=== PATIENT | female | born 1955 | race Hispanic/Latino ===

== ENCOUNTER 2020-06-30 11:44 | Emergency (ER) | payer BC, OTHER ==
[~2020-06-30 11:44] MED LIST: ADV250 IH; ALBU2.5V2 IH; ALBUTEROL INHALER; HYDR-4068 PO; SULF1TAB42 PO; Simvastatin PO
[2020-06-30] MEDS ORDERED: FENTANYL CITRATE PF 50 MCG/1 ML 2ML VIAL ONE (12:26)
== END 2020-06-30 13:48 | disposition home or self-care (01) ==
LOC: EDH 11:44
DX: S20.219A Contusion of unspecified front wall of thorax, initial encounter (principal); E11.9 Type 2 diabetes mellitus without complications; J45.909 Unspecified asthma, uncomplicated; W18.39XA Other fall on same level, initial encounter; Y93.89 Activity, other specified; Y92.098 Other place in other non-institutional residence as the place of occurrence of the external cause; Y99.8 Other external cause status
CPT/HCPCS: 71250; 96374; 99284; J3010

== ENCOUNTER 2024-10-25 00:14 | Inpatient (IN) | payer MEDICARE ==
[~2024-10-25] VITALS: Ht 154.9 cm; Wt 114.8 kg
[2024-10-25] VITALS (28 sets, daily range): BP systolic 101–150; BP diastolic 46–70; PULSE 72–114; RESP 16–20; TEMP 97.4–98.1; O2SAT 94–96
--- NOTE | 2024-10-25 00:22 | ERN ---
General Chief Complaint: Abdominal Pain Stated Complaint: C/O EPIGASTRIC PAIN WITH NAUSEA ONSET TONIGHT Time Seen by MD: 00:17 Source: patient History of Present Illness Initial Comments Patient is a 68-year-old female with a past medical history of hypertension and diabetes hypercholesterolemia only. She comes in with sharp stabbing pain in her epigastrium that is constant and 10/10. The pain does not radiate but stays subxiphoid. When I asked her to point with one finger where the pain is she points to her subxiphoid region of her abdomen. Nothing she does can make it better or worse. This happened approximately two weeks ago and she toughed it out but this time it is worse and she comes to the emergency room. She feels nauseated but no emesis. No shortness of breath no pain in her chest. Normal bowel movements normal urination. Allergies: Coded Allergies: No Allergy Information Available (Verified Allergy, Unknown, 08/18/14) No Known Drug Allergies (Unverified Allergy, Unknown, 08/18/14) Home Meds Active Scripts Sulfamethoxazole/Trimethoprim (Bactrim Ds Tablet) 1 Each Tablet, 2 TAB PO BID, #40 TAB Prov:RAJI DAVILA MD 08/27/14 Hydrocodone/Acetaminophen (Hydrocodon-Acetaminophn 10-325) 1 Each Tablet, 1 EACH PO QID, #60 TAB 0 Refills Prov:MANI RODNEY MD 08/24/14 [Simvastatin] 40 MG TABLET No Conflict Check, 40 MG PO HS, #30 TAB 3 Refills Prov:MANI RODNEY MD 08/23/14 Albuterol Sulfate (Albuterol Sulfate) 2.5 Mg/3 Ml Inh, 2.5 MG IH [id number] PRN for SHORTNESS OF BREATH, #1 INH 3 Refills Prov:MANI RODNEY MD 08/23/14 Reported Medications [Albuterol Inhaler] No Conflict Check, AD 08/18/14 Fluticasone/Salmeterol (ADVAIR 250-50 DISKUS) 14 Inh/Disk Inh, 0 IH DAILY, INHALER 08/18/14 Past Medical History Past Medical History: Anxiety, Diabetes-Type II, High Cholesterol Past Surgical History: None Constitutional: (-) chills, (-) diaphoresis, (-) fever, (-) malaise, (-) weakness, (-) other documentation EENTM: (-) eye pain, (-) blurred vision, (-) tearing, (-) double vision, (-) ear pain, (-) ear discharge, (-) nose pain, (-) nose congestion, (-) throat pain, (-) Throat swelling, (-) mouth pain, (-) tooth pain, (-) mouth swelling, (-) other documentation Respiratory: (-) cough, (-) orthopnea, (-) short of breath, (-) stridor, (-) wheezing, (-) other documentation Cardiovascular: (-) chest pain, (-) edema, (-) palpitations, (-) syncope, (-) dyspnea on exertion, (-) other documentation Gastrointestinal/Abdominal: (+) nausea Musculoskeletal: (-) Neck pain, (-) back pain, (-) Flank Pain, (-) joint pain, (-) joint swelling, (-) muscle pain, (-) muscle stiffness, (-) gout, (-) other documentation Neuro: (-) altered mental status, (-) headache, (-) syncope, (-) paralysis, (-) numbness, (-) seizure, (-) pre-existing deficit, (-) tremors, (-) weakness, (-) dizziness, (-) slurred speech, (-) vertigo, (-) other documentation Physical Exam General Appearance: (+) moderate distress Orientation: (+) oriented x 3 Head/Face Trauma: No Eye: bilateral eye normal inspection, bilateral eye PERRL, bilateral eye EOMI Ear, Nose, Throat: (+) hearing grossly normal, (+) moist mucous membraine Neck: (+) normal inspection, (+) full range of motion, (+) no JVD Respiratory: (+) chest non-tender, (+) lungs clear, (+) well ventilated Heart: (+) regular, (+) no gallop Vascular: (+) no edema, (+) normal peripheral pulse Gastrointestinal: (+) soft, (+) tender, (+) bowel sound absent Neurologic/Psychiatric: (+) normal speech, (+) no motor defecits, (+) no sensory deficits Results Laboratory and Microbiology Lab and Micro Result Laboratory Tests Test 10/25/24:23 10/25/24 00:53 Urine Color YELLOW (YELLOW) Urine Appearance CLOUDY (CLEAR) H Urine pH 7.0 (5.0-8.0) Urine Specific [place] 1.034 (1.001-1.031) Urine Protein 50 mg/dL (NEGATIVE) H Urine Glucose (UA) NEGATIVE mg/dL (NEGATIVE) Urine Ketones 5 mg/dL (NEGATIVE) H Urine Occult Blood NEGATIVE (NEGATIVE) Urine Nitrate NEGATIVE (NEGATIVE) Urine Bilirubin NEGATIVE mg/dL (NEGATIVE) Urine Urobilinogen 12 mg/dL (0.2-1.0) H Urine Leukocyte Esterase 250 Roberto/uL (NEGATIVE) H Urine RBC 2-5 /HPF (0-1) H Urine WBC 11-25 /HPF (0-1) H Urine Squamous Epithelial Cells MANY /HPF (0-2) Urine Bacteria RARE /HPF (None Seen) White Blood Count 12.2 K/uL (4.8-10.8) H Red Blood Count 5.03 MIL/uL (4.00-5.50) Hemoglobin 14.9 g/dL (12.0-16.0) Hematocrit 45.8 % (36-48) Mean Corpuscular Volume 91.1 fL (79-99) Mean Corpuscular Hemoglobin 29.6 pg (27.0-33.0) Mean Corpuscular Hemoglobin Concent 32.5 g/dL (32.0-36.0) Red Cell Distribution Width 12.9 % (11.0-15.5) Platelet Count 298 K/uL (130-400) Mean Platelet Volume 10.2 fL (7.5-10.5) Immature Granulocyte % (Auto) 0.4 % (0-1) Neutrophils (%) (Auto) 64.7 % (40.0-77.0) Lymphocytes (%) (Auto) 23.2 % (21.0-51.0) Monocytes (%) (Auto) 10.3 % (3.0-13.0) Eosinophils (%) (Auto) 0.9 % (0.0-8.0) Basophils (%) (Auto) 0.5 % (0.0-5.0) Neutrophils # (Auto) 7.9 K/uL (1.8-7.7) H Lymphocytes # (Auto) 2.8 K/uL (1.0-4.8) Monocytes # (Auto) 1.3 K/uL (0.1-1.0) H Eosinophils # (Auto) 0.11 K/uL (0.00-0.70) Basophils # (Auto) 0.06 K/uL (0.00-0.20) Absolute Immature Granulocyte (auto 0.05 K/uL (0-1) Nucleated Red Blood Cells 0.0 % (0.0-0.19) Sodium Level 139 mmol/L (136-145) Potassium Level 3.9 mmol/L (3.5-5.1) Chloride Level 100 mmol/L (101-111) L Carbon Dioxide Level 31 mmol/L (21-32) Blood Urea Nitrogen 18 mg/dL (7-18) Creatinine 1.1 mg/dL (0.5-1.0) H Glomerular Filtration Rate Calc 55 mL/min (>90) Random Glucose 224 mg/dL (70-105) H Total Calcium 9.4 mg/dL (8.5-10.1) Total Bilirubin 0.8 mg/dL (0.2-1.0) Direct Bilirubin 0.6 mg/dL (0.0-0.3) H Aspartate Amino Transf (AST/SGOT) 372 U/L (10-37) H Alanine Aminotransferase (ALT/SGPT) 306 U/L (12-78) H Alkaline Phosphatase 217 U/L (50-136) H Troponin I High Sensitivity < 4 ng/L (4-50) L B-Type Natriuretic Peptide < 5 pg/mL (0-100) Total Protein 8.7 g/dL (6.0-8.3) H Albumin 3.6 g/dL (3.5-5.0) Lipase 42 U/L (16-77) MDM I have no easy explanation now for patient's pain. Differential diagnosis could include, acute NV, pancreatitis, perforated duodenal ulcer, GERD, UTI, gallbladder disease. I will start with the usual normal labs and fluid. I will give her some pain medications and some Flexeril to help her relax. PT's cardiac enzymes are negative. CBC shows a a mild leukocytosis. CMP shows transaminitis and hyperglycemia but otherwise normal. CT scan of the abdomen shows a large stone in the patient's gallbladder and a distended gallbladder no pericholecystic fluid. Ultrasound is positive Nunez's sign with a distended gallbladder and a large gallstone as well. Had to give the patient multiple doses of fentanyl and a loading dose of ketorolac and her pain still not well controlled. I will admit her to the hospital for unremitting pain and biliary colic versus acute cholecystitis. Able to contact the general surgeon Dr. Mata and he has agreed to admit the patient to the hospital for possible cholecystitis. I have called the hospitalist to admit the patient and they have agreed. ED Course Orders Procedure Category Date Status Time Basic Metabolic Panel LAB 10/25/24 Complete 00:22 Cbc With Differential LAB 10/25/24 Complete 00:22 Urinalysis Profile LAB 10/25/24 Complete 00:22 Lactated Ringers PHA 10/25/24 Complete 1000ml (Lactated 00:22 12 Lead Ekg Tracing- EKG 10/25/24 Logged Technical 00:29 Culture Urine ARISTEO 10/25/24 In Process 00:42 Cyclobenzaprine Hcl PHA 10/25/24 Complete (Cyclobenzaprine Hcl 01:00 Ketorolac PHA 10/25/24 Complete Tromethamine 30mg/Ml 01:00 Lidocaine Hcl 2% PHA 10/25/24 Complete Viscous (Lidocaine Hcl 01:00 Mag/Alum/Simeth 30ml PHA 10/25/24 Complete (Maalox Plus 30ml) 01:00 Pantoprazole 40mg Inj PHA 10/25/24 Complete (Protonix 40mg Inj 01:00 Troponin I High LAB 10/25/24 Complete Sensitivity 00:49 B-Type Natriuretic LAB 10/25/24 Complete Peptide 00:49 Ct Abdomen/Pelvis CT 10/25/24 Taken W/Wo Contras 00:56 Lipase LAB 10/25/24 Complete 00:53 Ondansetron 4mg Inj PHA 10/25/24 Complete (Zofran 4mg Inj) 01:30 Hepatic Function Panel LAB 10/25/24 Complete 01:27 Iohexol (Omnipaque) PHA 10/25/24 Complete 01:51 Cefazolin Sodium 1 Gm PHA 10/25/24 Complete Vial (Ancef 1 Gm V 01:57 Fentanyl Citrate Pf PHA 10/25/24 Complete 0.05 Mg/Ml (Fentanyl 02:30 Insulin Regular, PHA 10/25/24 Complete Human 3ml (Humulin R 02:30 Us Abdominal Ruq\Ltd 10/25/24 Taken 02:24 Fentanyl Citrate Pf PHA 10/25/24 Complete 0.05 Mg/Ml (Fentanyl 03:00 Nm Hida Wo Ef/Cck NM 10/25/24 Logged 03:19 Ketorolac PHA 10/25/24 Complete Tromethamine 30mg/Ml 03:30 Current Medications Medications (Trade) Dose Ordered Sig/Joseph Route PRN Reason Start Time Stop Time Status Last Admin Dose Admin Al Hydroxide/Mg Hydroxide (MAALox PLUS 30ML) 30 ml ONCE ONCE PO 10/25/24 01:00 10/25/24 01:01 DC 10/25/24 01:00 Cefazolin Sodium (ANCEF 1 gm vial) 1 gm ONCE STAT IVP 10/25/24 01:57 10/25/24 02:03 DC 10/25/24 02:10 Cyclobenzaprine HCl (Cyclobenzaprine HCl) 10 mg ONCE ONCE PO 10/25/24 01:00 10/25/24 01:01 DC 10/25/24 01:00 Fentanyl Citrate (FENTanyl CITRate PF 50 MCG/ 1 ML 2ML VIAL) 50 mcg ONCE ONCE IVP 10/25/24 02:30 10/25/24 02:31 DC 10/25/24 02:19 Fentanyl Citrate (FENTanyl CITRate PF 50 MCG/ 1 ML 2ML VIAL) 50 mcg ONCE ONCE IVP 10/25/24 03:00 10/25/24 03:01 DC 10/25/24 02:52 Insulin Human Regular (humuLIN R 100 UNIT/ML 3ML) 10 unit ONCE ONCE SQ 10/25/24 02:30 10/25/24 02:31 DC 10/25/24 02:27 Iohexol (Omnipaque) 35,000 mg STK-MED ONCE IV 10/25/24 01:51 10/25/24 01:52 DC Ketorolac Tromethamine (toRADol) 30 mg ONCE ONCE IVP 10/25/24 01:00 10/25/24 01:01 DC 10/25/24 01:00 Ketorolac Tromethamine (toRADol) 30 mg ONCE ONCE IVP 10/25/24 03:30 10/25/24 03:31 DC 10/25/24 03:33 Lactated Ringer's (Lactated Ringers 1000ml) 1,000 ml BOLUS STAT IV 10/25/24 00:22 10/25/24 00:29 DC 10/25/24 00:47 Lidocaine HCl (Lidocaine HCl 2% Viscous) 10 ml ONCE ONCE PO 10/25/24 01:00 10/25/24 01:01 DC 10/25/24 01:00 Ondansetron HCl (zoFRAN 4MG INJ) 4 mg ONCE ONCE IVP 10/25/24 01:30 10/25/24 01:31 DC 10/25/24 01:17 Pantoprazole Sodium (PROTonix 40MG INJ) 40 mg ONCE ONCE IVP 10/25/24 01:00 10/25/24 01:01 DC 10/25/24 01:00 Vital Signs Date Time Temp Pulse Resp B/P (MAP) Pulse Ox O2 Delivery O2 Flow Rate FiO2 10/25/24 05:14 98.4 81 18 103/52 96 Room Air* 0 21 10/25/24 00:17 98.2 95 20 159/91 95 Room Air DX & DISP Disposition: Inpatient Departure Impression: Primary Impression: Biliary colic Additional Impression: Intractable abdominal pain Condition: Stable Referrals: MANI RODNEY MD (PCP) TAZ STEVENS MD October 25, 2024 00:22
[2024-10-25 00:40] LABS: APPEARANCE,URINE CLOUDY (CLEAR); BILIRUBIN,URINE NEGATIVE (NEGATIVE); COLOR,URINE YELLOW (YELLOW); GLUCOSE, URINE (UA) NEGATIVE (NEGATIVE); KETONES,URINE 5 mg/dL (NEGATIVE); LEUKOCYTE ESTERASE ,URINE 250 Leu/uL (NEGATIVE); NITRATE,URINE NEGATIVE (NEGATIVE); OCCULT BLOOD,URINE NEGATIVE (NEGATIVE); PROTEIN,URINE 50 mg/dL (NEGATIVE); UROBILINOGEN,URINE 12 mg/dL (0.2-1.0)
[2024-10-25 00:42] LABS: ADD UA MICROSCOPIC YES
[2024-10-25 00:44] LABS: BACTERIA,URINE RARE /HPF (None Seen); MUCUS,URINE FEW LPF (None Seen); SQUAMOUS EPITHELIAL CELL,UR MANY /HPF (0-2)
[2024-10-25] MEDS: LACTATED RINGERS 1000ML IV STA (00:47)
[2024-10-25] MEDS: ketOROlac 30MG VIAL (30MG/ML) IVP ONE ×2 (01:00→03:33)
[2024-10-25] MEDS: MAG/ALUM/SIMETH 30 ML UDCUP PO ONE (01:00)
[2024-10-25] MEDS: LIDOCAINE HCL 2% VISCOUS 15 ML UDCUP PO ONE (01:00)
[2024-10-25] MEDS: CYCLOBENZAPRINE HCL 10 MG TABLET PO ONE (01:00)
[2024-10-25] MEDS: PANTOPrazole 40 MG/VIAL IVP ONE (01:00)
[2024-10-25 01:02] LABS: BASOPHILS # (AUTO) 0.06 K/uL (0.00-0.20); BASOPHILS % (AUTO) 0.5 % (0.0-5.0); EOSINOPHILS # (AUTO) 0.11 K/uL (0.00-0.70); EOSINOPHILS % (AUTO) 0.9 % (0.0-8.0); HEMATOCRIT 45.8 % (36-48); IMMATURE GRANULOCYTE ABSOLUTE 0.05 K/uL (0-1); LYMPHOCYTES # (AUTO) 2.8 K/uL (1.0-4.8); LYMPHOCYTES % (AUTO) 23.2 % (21.0-51.0); MEAN CORPUSCULAR HEMOGLOBIN 29.6 pg (27.0-33.0); MEAN CORPUSCULAR HGB CONC 32.5 g/dL (32.0-36.0); MEAN CORPUSCULAR VOLUME 91.1 fL (79-99); MONOCYTES # (AUTO) 1.3 K/uL (0.1-1.0); MONOCYTES % (AUTO) 10.3 % (3.0-13.0); NEUTROPHILS # (AUTO) 7.9 K/uL (1.8-7.7); NEUTROPHILS % (AUTO) 64.7 % (40.0-77.0); PLATELET COUNT (AUTO) 298 K/uL (130-400); RED BLOOD CELL COUNT(AUTO) 5.03 MIL/uL (4.00-5.50); RED CELL DISTRIBUTION WIDTH 12.9 % (11.0-15.5); WHITE BLOOD COUNT (AUTO) 12.2 K/uL (4.8-10.8)
[2024-10-25 01:10] LABS: CREATININE 1.1 mg/dL (0.5-1.0); POTASSIUM 3.9 mmol/L (3.5-5.1)
[2024-10-25] MEDS: ondanSETRON 4MG INJ IVP ONE (01:17)
[2024-10-25] MEDS ORDERED: IOHEXOL 350 MG/ML 100ML INFUS..BTL IV ONE (01:51)
[2024-10-25 02:03] LABS: ALBUMIN 3.6 g/dL (3.5-5.0); BILIRUBIN,DIRECT 0.6 mg/dL (0.0-0.3); BILIRUBIN,TOTAL 0.8 mg/dL (0.2-1.0); TOTAL PROTEIN, SERUM 8.7 g/dL (6.0-8.3)
[2024-10-25] MEDS: ceFAZolin SODIUM 1 GM VIAL IVP STA (02:10)
[2024-10-25] MEDS: FENTanyl CITRate PF 50 MCG/1 ML 2ML VIAL IVP ONE ×2 (02:19→02:52)
[2024-10-25] MEDS: INSULIN humuLIN R 100 UNIT/ML 3ML SQ ONE (02:27)
[2024-10-25] MEDS: 0.9%NACL 1000ML 1,000 ML IV SCH (06:53)
[2024-10-25] MEDS: hydroMORPHone 1 MG INJ IVP ONE (06:53)
[2024-10-25] MEDS: cefTRIAXone 1G VIAL IVPB SCH (07:46)
--- NOTE | 2024-10-25 08:32 | HMCIMG ---
Exam Type: CT ABDOMEN/PELVIS W/WO CONTRAS Clinical Information: periumbilical pain Comparison: None Contrast: 100 cc's Isovue 370 IV, no complications or adverse reactions CT Dose Index (CTDI): 31.60 mGy Dose Length Product (DLP): 1740.80 total mGy-cm Findings: No evidence of nephro or ureterolithiasis is found. No hydronephrosis or ureteral dilatation is seen. The lung bases are clear. The stomach is unremarkable. It shows no wall thickening. No gross ulceration is seen. It is not overly distended. There are no surrounding inflammatory changes. No wall lesions are identified to suggest cancer. The spleen is unremarkable. It is not enlarged. The pancreas shows normal anatomy. It is not fatty replaced. It shows no lesions. The pancreatic duct is not dilated. There is evidence of cholelithiasis. The gallbladder is hydropic. No evidence of acute or chronic inflammation is seen. The adrenal glands are unremarkable. There is no enlargement. No lesions are noted. The liver is unremarkable. It shows no focal masses. The appendix is unremarkable. It shows no evidence of inflammation. No appendicolith is seen. The small bowel is unremarkable. There is no evidence of dilatation to suggest obstruction. No evidence of adynamic ileus is seen. There is no small bowel wall thickening to suggest enteritis. There is diverticulosis. There is no evidence of acute inflammation to suggest diverticulitis. The colon is otherwise unremarkable. The urinary bladder is unremarkable. There is no wall thickening to suggest tumor or inflammation. There are no intraluminal calculi. There are no diverticula. There is no evidence of chronic bladder outlet obstruction. There is no evidence of urinary bladder distention to suggest urinary retention. The other pelvic structures are unremarkable. The bony and vascular structures are unremarkable for the patient's age. IMPRESSION: Hydropic gallbladder with cholelithiasis. Diverticulosis of the colon. No acute inflammation. This study was performed using dose reduction techniques to include automated exposure control and/or adjustment of the mA and/or kV according to patient size.
--- NOTE | 2024-10-25 09:06 | HMCIMG ---
Exam Type: US ABDOMINAL RUQ\E\LTD Clinical Information: abd pain transaminitis Comparison: None Findings: The liver shows fatty infiltration and is enlarged, measuring 19 cm and is otherwise unremarkable. Doppler evaluation shows patent portal and hepatic veins. The gallbladder shows cholelithiasis. There is a positive Nunez's sign and this may represent acute cholecystitis. The gallbladder is hydropic. The gallbladder wall measures 2 mm. The common bile duct not visualized due to abundant overlying bowel gas. The right kidney measures 10.9 x 5.4 cm- it shows no hydronephrosis or calculi, masses or other abnormalities. The pancreas is unremarkable. The aorta and inferior vena cava show no significant abnormalities. Small right pleural effusion. IMPRESSION: FATTY LIVER INFILTRATION AND HEPATOMEGALY. Cholelithiasis and hydropic gallbladder and possible acute cholecystitis. Right pleural effusion. OTHERWISE NORMAL RIGHT UPPER QUADRANT ABDOMINAL ULTRASOUND.
--- NOTE | 2024-10-25 11:01 | NUR ---
LAMONT SCHWARTZ AT BEDSIDE
--- NOTE | 2024-10-25 11:08 | NUR ---
CANCEL HIDA SCAN PER LAMONT SCHWARTZ
--- NOTE | 2024-10-25 11:09 | EKG ---
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
[2024-10-25] MEDS: ondanSETRON 4MG INJ IVP PRN (11:11)
[2024-10-25] MEDS: hydroMORPHone 0.5 MG SYG (0.5MG/0.5ML) IVP PRN (11:11)
--- NOTE | 2024-10-25 11:27 | NUR ---
DCP: HOME Sw met with pt and her Antonietta Wiggins [phone]. Pt emotional from pain, states she has bad knee and difficulty ambulating, getting into her mobile home, ADLS. Pt states she needs ramp for her scooter. Pt agreeable to referral to Caroline at [facility] for possible assistance. Pt has provider 4hrs daily to assist her with bathing dressing grooming, home management and meal prep. Pt has a scooter, walker with seat, and shower chair. No HH or HD. Family transports as needed. PCP is Clementina Fagan and uses [facility] for rx needs. Pt denies need for SNF, [place]. Addendum: 10/25/24 at 1143 by SANDI GUTIERREZ Amended: Links added.
--- NOTE | 2024-10-25 11:52 | CONS ---
CONSULT NOTE: Consulting physician:Dr Fagan Consulting service: General surgery Reason for consultation: Acute cholecystitis History of present illness: This is a 68-year-old female with a known history of cholelithiasis that has been consulted to surgery after presenting to the hospital with concerns of significant epigastric pain rated at 10/10 radiating to her back. At time of exam patient still with significant epigastric and right upper quadrant pain on palpation. Initial imaging performed on admission concerning for acute cholecystitis. Patient also noted to have an elevated white count as well as elevated LFTs both in the 300s. Bilirubin remains unremarkable. Patient is scheduled for HIDA scan at this time. Patient currently NPO on IV fluids and IV antibiotics Medical history: Anxiety Hypertension High cholesterol Surgical history: None reported Review of systems: General: No Fever, No Chills, No Night Sweats, No Fatigue, No Malaise, No Appetite, No Other HEENT: No Head Aches, No Visual Changes, No Eye Pain, No Ear Pain, No Dysphasia, No Sinus Congestion, No Post Nasal Drip, No Sore Throat, No Other Pulmonary: No Dyspnea, No Cough, No Pleuritic Chest Pain, No Other Cardiovascular: No: Chest Pain, Palpitations, Orthopnea, Paroxysmal No Dyspnea, Edema, Lt Headedness, Other Gastrointestinal: No: Nausea, Vomiting, Diarrhea, Constipation, Melena, Hematochezia, Other Genitourinary: No Dysuria, No Frequency, No Incontinence, No Hematuria, No Retention, No Other Musculoskeletal: No: other, neck pain, shoulder pain, arm pain, back pain, hand pain, leg pain, foot pain Skin: No Urticaria, No Rash, No Other Neurological: No: Weakness, Numbness, Incoordination, Change in speech, Confusion, Seizures, Other Physical exam: General: Awake alert and oriented Heart: Regular rate and rhythm} Lungs: [Clear to auscultation no distress Abdomen: [ right upper quadrant pain with the epigastric discomfort Assessment: This is a 68-year-old female with the acute cholecystitis Plan: At this point in time patient will be scheduled for robotic cholecystectomy possible open by Dr. Ramon SALGADO scan to be canceled Patient to remain NPO and continue with the IV fluids and IV antibiotics Consent to be obtained for cholecystectomy LAMONT MEJIA Jr. October 25, 2024 11:52
--- NOTE | 2024-10-25 13:42 | HP ---
HISTORY AND PHYSICAL Date of Visit: October 25, 2024 Time of Visit: 13:42 ADMISSION DATE: October 25, 2024 at 06:40 CC: ABD PAIN HPI: THIS IS A 68 YR OLD WOMAN WITH HX OF MORBID OBESITY, HTN AND DM II WHO PRESENTED COMPLAINING OF SEVERE ABDOMINAL PAIN IN THE MID LOWER EPIGASTRIC REGION. SHE REPORTS HER PAIN STARTED LAST WEEK BUT WAS NOT SEVERE AND WAS RELATED TO HER MEALS AND THEN WOULD SUBSIDE. SHE DID NOT SEEK MEDICAL ATTENTION BECAUSE SHE THOUGHT IT WOULD SUBSIDE BUT INSTEAD IT INTENSIFIED UNTIL HER PAIN WAS SO SEVERE TODAY THAT SHE TOLD HER SHE NEEDED TO GO TO THE ER FOR EVALUATION. SHE HAD SOME ASSOCIATED NAUSEA BUT NO VOMITING AND SOME ASSOCIATED CHILLS BUT NO FEVER. THE PAIN WAS A 10/10 IN INTENSITY AND DID NOT RADIATE. NO SOB PALPITATIONS CP CONSTIPATION DIARRHEA DYSURIA URINARY URGENCY FREQUENCY OR HEMATURIA. SHE DOES NO HAVE ANY PRIOR HISTORY OF THESE EPISODES IN THE PAST. PAST MEDICAL HISTORY: OBESE MORBID BMI 48 ALLERGIC RHINITIS ASTHMA CHRONIC OBS / EX- SMOKER MIXED LIPIDS DEPRESSION MAJOR SINGLE EPISODE, MODERATE DM II W PERIPHERAL POLYNEUROPATHY OSTEOPOROSIS HISTORY OF RIGHT NEPHROLITHIASIS NON OBSTRUCTING 6 MM CHF EF 65% LVH DIASTOLIC DYSFN WITH ANEURYSMAL SEPTUM MILD RVD- 01/2022 HH AND RENAL DISEASE WITH CKD 2 W/O CHF STRESS TEST NEG 03/2022 DJD GEN MULTIPLE SITES SOCIAL HISTORY: LIVES LOCALLY WITH HER NO ALCOHOL TOBACCO OR DRUG ABUSE FAMILY HISTORY: UNKNOWN CANCER, DM II AND HYPERLIPIDEMIA * Patient History: Cancer FATHER FH: hypercholesterolemia BROTHER Family history: Diabetes mellitus FATHER Allergies: Coded Allergies: No Allergy Information Available (Verified Allergy, Unknown, 08/18/14) No Known Drug Allergies (Unverified Allergy, Unknown, 08/18/14) Scheduled Fluticasone/Salmeterol (Advair 250-50 Diskus), 0 IH DAILY, (Reported) Insulin Glargine,Hum.rec.anlog (Basaglar Kwikpen U-100), 60 UNIT SQ BID Lisinopril (Lisinopril), 2.5 MG PO DAILY Mirtazapine (Mirtazapine), 30 MG PO HS [place]-3 Fatty Acids/Fish Oil ([place] 3 1,000 mg Softgel), 1 CAP PO DAILY Pantoprazole Sodium (Pantoprazole Sodium), 1 TAB PO DAILY Semaglutide (Ozempic), 1 MG SQ QWEEK Simvastatin (Simvastatin), 1 TAB PO HS [Simvastatin], 40 MG PO HS Scheduled PRN Albuterol Sulfate (Albuterol Sulfate), 2.5 MG IH [id number] PRN for SHORTNESS OF BREATH Discontinued Medications Sulfamethoxazole/Trimethoprim (Bactrim Ds Tablet), 2 TAB PO BID [Albuterol Inhaler], AD, (Reported) Review of Systems Normal Constitutional:, Normal Eyes:, Normal Ear/Nose/Mouth/Throat, Normal Cardiovascular:, Normal Respiratory:, Normal Genitourinary:, Normal Integumentary:, Normal Musculoskeletal:, Normal Neurological:, Normal Psychol ogical:, Normal Endocrine:, Normal Hematologic/Lymphatic:, Normal Allergic/Immunologic:; Abnormal Gastrointestinal: (LOWER MID EPIGASTRIC PAIN AND REFER TO HPI) Physical Exam Vital Signs Vital Signs Date Time Temp Pulse Resp B/P (MAP) Pulse Ox O2 Delivery O2 Flow Rate FiO2 10/25/24 00:17 98.2 95 20 159/91 95 Room Air 10/25/24 05:14 0 21 Appearance: Obese Eyes: Clear, PERRL, EOM Normal Ear/Nose/Mouth/Throat: Landmarks WNL, Oropharynx WNL Neck: Symmetric, trach midline, Thyroid WNL Cardiovascular: PMI WNL, Regular Rate, Regular Rhythm Respiratory: No Retractions, Lungs clear G.I.: Normal bowel sounds, No rebound tenderness, Abnormal (PAIN ON PALPATION TO LOWER MID EPIGASTRIC REGION) Lymphatic: No lymphadenopathy neck, No lymphadenopathy groin Musculoskeletal: Normal ROM Skin: No rash/ulcers Neurology: Nerves I-XII intact, Sensation WNL Psychology: Insight WNL, Orientation WNL, Memory WNL, Affect WNL Diagnostics Laboratory Tests Test 10/25/24 00:23 10/25/24 00:53 Range/Units Urine Color YELLOW YELLOW Urine Appearance CLOUDY CLEAR Urine pH 7.0 5.0-8.0 Urine Specific [place] 1.034 1.001-1.031 Urine Protein 50 NEGATIVE mg/dL Urine Glucose (UA) NEGATIVE NEGATIVE mg/dL Urine Ketones 5 NEGATIVE mg/dL Urine Occult Blood NEGATIVE NEGATIVE Urine Nitrate NEGATIVE NEGATIVE Urine Bilirubin NEGATIVE NEGATIVE mg/dL Urine Urobilinogen 12 0.2-1.0 mg/dL Urine Leukocyte Esterase 250 NEGATIVE Roberto/uL Urine RBC 2-5 0-1 /HPF Urine WBC 11-25 0-1 /HPF Urine Squamous Epithelial Cells MANY 0-2 /HPF Urine Bacteria RARE None Seen /HPF White Blood Count 12.2 4.8-10.8 K/uL Red Blood Count 5.03 4.00-5.50 MIL/uL Hemoglobin 14.9 12.0-16.0 g/dL Hematocrit 45.8 36-48 % Mean Corpuscular Volume 91.1 79-99 fL Mean Corpuscular Hemoglobin 29.6 27.0-33.0 pg Mean Corpuscular Hemoglobin Concent 32.5 32.0-36.0 g/dL Red Cell Distribution Width 12.9 11.0-15.5 % Platelet Count 298 130-400 K/uL Mean Platelet Volume 10.2 7.5-10.5 fL Immature Granulocyte % (Auto) 0.4 0-1 % Neutrophils (%) (Auto) 64.7 40.0-77.0 % Lymphocytes (%) (Auto) 23.2 21.0-51.0 % Monocytes (%) (Auto) 10.3 3.0-13.0 % Eosinophils (%) (Auto) 0.9 0.0-8.0 % Basophils (%) (Auto) 0.5 0.0-5.0 % Neutrophils # (Auto) 7.9 1.8-7.7 K/uL Lymphocytes # (Auto) 2.8 1.0-4.8 K/uL Monocytes # (Auto) 1.3 0.1-1.0 K/uL Eosinophils # (Auto) 0.11 0.00-0.70 K/uL Basophils # (Auto) 0.06 0.00-0.20 K/uL Absolute Immature Granulocyte (auto 0.05 0-1 K/uL Nucleated Red Blood Cells 0.0 0.0-0.19 % Sodium Level 139 136-145 mmol/L Potassium Level 3.9 3.5-5.1 mmol/L Chloride Level 100 101-111 mmol/L Carbon Dioxide Level 31 21-32 mmol/L Blood Urea Nitrogen 18 7-18 mg/dL Creatinine 1.1 0.5-1.0 mg/dL Glomerular Filtration Rate Calc 55 >90 mL/min Random Glucose 224 70-105 mg/dL Total Calcium 9.4 8.5-10.1 mg/dL Total Bilirubin 0.8 0.2-1.0 mg/dL Direct Bilirubin 0.6 0.0-0.3 mg/dL Aspartate Amino Transf (AST/SGOT) 372 10-37 U/L Alanine Aminotransferase (ALT/SGPT) 306 12-78 U/L Alkaline Phosphatase 217 50-136 U/L Troponin I High Sensitivity < 4 4-50 ng/L B-Type Natriuretic Peptide < 5 0-100 pg/mL Total Protein 8.7 6.0-8.3 g/dL Albumin 3.6 3.5-5.0 g/dL Lipase 42 16-77 U/L Assessment/Plan Assessment/Plan RADIOLOGY ABD PELWWO - CT ABDOMEN/PELVIS W/WO CONTRAS Findings: No evidence of nephro or ureterolithiasis is found. No hydronephrosis or ureteral dilatation is seen. The lung bases are clear. The stomach is unremarkable. It shows no wall thickening. No gross ulceration is seen. It is not overly distended. There are no surrounding inflammatory changes. No wall lesions are identified to suggest cancer. The spleen is unremarkable. It is not enlarged. The pancreas shows normal anatomy. It is not fatty replaced. It shows no lesions. The pancreatic duct is not dilated. There is evidence of cholelithiasis. The gallbladder is hydropic. No evidence of acute or chronic inflammation is seen. The adrenal glands are unremarkable. There is no enlargement. No lesions are noted. The liver is unremarkable. It shows no focal masses. The appendix is unremarkable. It shows no evidence of inflammation. No appendicolith is seen.The small bowel is unremarkable. There is no evidence of dilatation to suggest obstruction. No evidence of adynamic ileus is seen. There is no small bowel wall thickening to suggest enteritis. There is diverticulosis. There is no evidence of acute inflammation to suggest diverticulitis. The colon is otherwise unremarkable. The urinary bladder is unremarkable. There is no wall thickening to suggest tumor or inflammation. There are no intraluminal calculi. There are no diverticula. There is no evidence of chronic bladder outlet obstruction. There is no evidence of urinary bladder distention to suggest urinary retention. The other pelvic structures are unremarkable. The bony and vascular structures are unremarkable for the patient's age. IMPRESSION: Hydropic gallbladder with cholelithiasis. Diverticulosis of the colon. No acute inflammation. This study was performed using dose reduction techniques to include automated exposure control and/or adjustment of the mA and/or kV according to patient size. [id number] - US ABDOMINAL RUQ\LTD Findings: The liver shows fatty infiltration and is enlarged, measuring 19 cm and is otherwise unremarkable. Doppler evaluation shows patent portal and hepatic veins. The gallbladder shows cholelithiasis. There is a positive Nunez's sign and this may represent acute cholecystitis. The gallbladder is hydropic. The gallbladder wall measures 2 mm. The common bile duct not visualized due to abundant overlying bowel gas. The right kidney measures 10.9 x 5.4 cm- it shows no hydronephrosis or calculi, masses or other abnormalities. The pancreas is unremarkable. The aorta and inferior vena cava show no significant abnormalities. Small right pleural effusion. IMPRESSION: FATTY LIVER INFILTRATION AND HEPATOMEGALY. Cholelithiasis and hydropic gallbladder and possible acute cholecystitis. Right pleural effusion. OTHERWISE NORMAL RIGHT UPPER QUADRANT ABDOMINAL ULTRASOUND. ASSESSMENT: THIS IS A 68 YR OLD WOMAN WITH HISTORY OF MORBID BMI 48 ALLERGIC RHINITIS ASTHMA CHRONIC OBS / EX- SMOKER MIXED LIPIDS DEPRESSION MAJOR SINGLE EPISODE, MODERATE DM II W PERIPHERAL POLYNEUROPATHY OSTEOPOROSIS HISTORY OF RIGHT NEPHROLITHIASIS NON OBSTRUCTING 6 MM CHF EF 65% LVH DIASTOLIC DYSFN WITH ANEURYSMAL SEPTUM MILD RVD- 01/2022 HH AND RENAL DISEASE WITH CKD 2 W/O CHF STRESS TEST NEG 03/2022 DJD GEN MULTIPLE SITES SHE PRESENTED WITH ACUTE BILIARY COLI AND FOUND TO HAVE CHOLELITHIASIS WITH SUSPECTED ACUTE CHOLECYSTITIS PLAN: KEEP NPO HYDRATE WITH IVF IV ANALGESICS AND ANTI EMETICS PRN STARTED ON OV ANTIBIOTICS GNS WAS CONSULTED IN ER MONITOR LIVER FN SUPPLEMENT ELECTROLYTES HOLD ANTI HYPERTENSIVES AND ADJUST NEEDED HOLD OZEMPIC AND MONITOR GLUCOSE AND COVER WITH ADDITIONAL INSULIN NEEDED TEDS SCD'S AND LOVENOX FOR DVT PROPHYLAXIS PEPCID IV FOR STRESS ULCER PROPHYLAXIS INCREASE REHAB TOLERATED ANSWERED ALL QUESTIONS FOR PATIENT AND AT BEDSIDE MANI RODNEY MD October 25, 2024 13:42
[2024-10-25] MEDS ORDERED: PANT40TA54 PO (13:49)
[2024-10-25] MEDS ORDERED: LISI2.5T13 PO (13:49)
[2024-10-25] MEDS ORDERED: SEMA1PEN3 SQ (13:49)
[2024-10-25] MEDS ORDERED: MIRT-73 PO (13:49)
[2024-10-25] MEDS ORDERED: INSU100I26 SQ (13:49)
[2024-10-25] MEDS ORDERED: SIMV-46 PO (13:49)
[2024-10-25] MEDS ORDERED: FISH1CAP27 PO (13:49)
[2024-10-25] MEDS ORDERED: PoTASSium chloRIDE 20MEQ/100ML 100 ML IV PRN ×2 (14:00)
[2024-10-25] MEDS ORDERED: PoTASSium chloRIDE 20MEQ ER 20 MEQ ERTAB PO PRN (14:00)
[2024-10-25] MEDS ORDERED: acetaMINOPHEN 325 MG TAB PO PRN ×2 (14:00)
[2024-10-25] MEDS ORDERED: LACTULOSE 20 GM/30 ML UDCUP PO PRN (14:00)
[2024-10-25] MEDS ORDERED: hydrALAZine 20MG/ML VIAL IV PRN (14:00)
[2024-10-25] MEDS ORDERED: PoTASSium chl 10% ELIXIR 20MEQ 20 MEQ/15 ML UDCUP PO PRN (14:00)
[2024-10-25] MEDS ORDERED: MAGNESIUM 2GM PREMIX 50ML 50 ML IV PRN (14:00)
[2024-10-25] MEDS ORDERED: GLUCAGON 1MG KIT 1 MG ML IM PRN (14:00)
[2024-10-25] MEDS ORDERED: DEXTROSE 50%-WATER 50 ML DISP.SYRIN IV PRN (14:00)
[2024-10-25] MEDS ORDERED: MAG/ALUM/SIMETH 30 ML UDCUP PO PRN (14:00)
[2024-10-25] MEDS ORDERED: guaiFENesin-DM 200/20MG 10ML PO PRN (14:00)
[2024-10-25] MEDS: ALBUTEROL 0.083% 2.5 MG/3 ML INH IH PRN (14:34)
--- NOTE | 2024-10-25 15:12 | NUR ---
REPORT TO SEPTEMBER RN, PT TAKEN TO OR AWAKE, ALERT, NO ACUTE DISTRESS NOTED
[2024-10-25] MEDS: INDOCYANINE GREEN 25 MG VIAL IJ ONE (15:20)
[2024-10-25] MEDS ORDERED: LIDOCAINE PF 100MG/5ML (2%) SYRINGE 5ML ONE (15:23)
[2024-10-25] MEDS ORDERED: rocuRONium bROMide 10MG/1ML 5ML VL ONE (15:24)
[2024-10-25] MEDS ORDERED: FENTanyl CITRate PF 50 MCG/1 ML 2ML VIAL ONE (15:24)
[2024-10-25] MEDS ORDERED: SUCCINYLCHOLINE CHLORIDE 20 MG/ML 10 ML VIAL ONE (15:24)
[2024-10-25] MEDS ORDERED: proPOFol 10 MG/ML 20ML VIAL IV ONE ×2 (15:24→16:38)
[2024-10-25] MEDS ORDERED: MIDAZOLAM HCL 1 MG/ML 2ML VIAL ONE (15:24)
[2024-10-25] MEDS: SUGAMMADEX SODIUM 200 MG/2 ML VIAL IV ONE (15:53)
[2024-10-25] MEDS: BUPIvacaine/PF 0.25% 10ML VIAL IJ ONE (16:21)
[2024-10-25] MEDS: BUPIvacaine/PF 0.25% 30ML VIAL IJ ONE (16:21)
[2024-10-25] MEDS: INSULIN humuLIN R 100 UNIT/ML 3ML SQ SCH (16:30)
--- NOTE | 2024-10-25 16:43 | OP ---
Operative Note: DATE OF PROCEDURE: 10/25/24 SURGEON: CANDY HALL MD STONER HAND: [] ANESTHESIA: [] General ANESTHESIOLOGIST/MOTOR COACH OPERATOR: [] PREOPERATIVE DIAGNOSIS: [] Acute cholecystitis POSTOPERATIVE DIAGNOSIS: [] The same SYNOPSIS: [] PROCEDURE: [] robotic cholecystectomy ESTIMATED BLOOD LOSS: [] Minimal INDICATIONS: [] DESCRIPTION OF PROCEDURE: [] With the patient prepped and draped we did a supraumbilical incision. Using direct technique I placed a balloon trocar. Two da Carey trochars were placed in each side of the abdomen under direct vision. A 8 mm trocar was placed in the right lateral side. I then went to the console and the robot was docked. I took all adhesions from the gallbladder and I started dissecting the triangle of [place]. we used firefly to identify the cystic duct and CBD.The cystic duct and the cystic artery were clearly identified and both were double clipped and divided. I took the gallbladder from below using cautery dissection. After the gallbladder was completely removed and adequate hemostasis was obtained I remove all the instruments from the abdomen. I undocked the robot and I came back to the bedside of the patient. I confirm hemostasis suction and irrigate and I placed the gallbladder in a bag. I injected 40 cc of Marcaine 0.25% as an abdominal tap block under direct vision. I injected 20 cc in each side of the abdomen. I took out all the trochars under direct vision and the gallbladder through the supraumbilical incision. I closed the fascia of the supraumbilical incision with a 0 Vicryl [id number]. All incisions were closed with staplers. The patient was transferred stable to the recovery room. CANDY HALL MD October 25, 2024 16:42
[2024-10-25] MEDS: acetaMINOPHEN 100 ML ONE (17:21)
[2024-10-25] MEDS ORDERED: morPHINE 2 MG SYG IVP PRN (20:00)
[2024-10-26] VITALS (9 sets, daily range): BP systolic 102–127; BP diastolic 54–68; PULSE 90–116; RESP 18–20; TEMP 98.3–99; O2SAT 92–95
[2024-10-26 06:06] LABS: BASOPHILS # (AUTO) 0.04 K/uL (0.00-0.20); BASOPHILS % (AUTO) 0.3 % (0.0-5.0); HEMATOCRIT 42.7 % (36-48); IMMATURE GRANULOCYTE ABSOLUTE 0.07 K/uL (0-1); LYMPHOCYTES # (AUTO) 1.6 K/uL (1.0-4.8); LYMPHOCYTES % (AUTO) 11.3 % (21.0-51.0); MEAN CORPUSCULAR HEMOGLOBIN 29.9 pg (27.0-33.0); MEAN CORPUSCULAR HGB CONC 31.9 g/dL (32.0-36.0); MEAN CORPUSCULAR VOLUME 93.8 fL (79-99); MONOCYTES # (AUTO) 1.5 K/uL (0.1-1.0); MONOCYTES % (AUTO) 10.4 % (3.0-13.0); NEUTROPHILS # (AUTO) 11.2 K/uL (1.8-7.7); NEUTROPHILS % (AUTO) 77.5 % (40.0-77.0); PLATELET COUNT (AUTO) 256 K/uL (130-400); RED BLOOD CELL COUNT(AUTO) 4.55 MIL/uL (4.00-5.50); RED CELL DISTRIBUTION WIDTH 13.2 % (11.0-15.5); WHITE BLOOD COUNT (AUTO) 14.5 K/uL (4.8-10.8)
[2024-10-26 07:02] LABS: BILIRUBIN,DIRECT 3.6 mg/dL (0.0-0.3); BILIRUBIN,TOTAL 4.5 mg/dL (0.2-1.0); CREATININE 0.9 mg/dL (0.5-1.0); POTASSIUM 4.4 mmol/L (3.5-5.1); TOTAL PROTEIN, SERUM 7.4 g/dL (6.0-8.3)
[2024-10-26] MEDS: FAMOTIDINE 20MG VIAL IV SCH (08:13)
[2024-10-26] MEDS: ENOXAPARIN SODIUM 40 MG/0.4 ML SYRINGE SQ SCH (08:14)
--- NOTE | 2024-10-26 10:55 | PN ---
This is a 68-year-old female status post cholecystectomy by Dr. Navarro postop day one Interval history: This 68-year-old female seen in her room resting Patient with very little appetite today Patient with expected postoperative discomfort WBCs elevated to 14. Bilirubin also elevated at 4.5 Vitals stable Incisions clean and dry Physical exam General: Awake alert and oriented Heart: Regular rate and rhythm} Lungs: [Clear to auscultation no distress Abdomen: [With expected discomfort status post laparoscopic procedure Assessment : This is a 68-year-old female postop day one for cholecystectomy with Dr. Navarro Plan: This point in time patient will require one more day of observation Repeat CBC and CMP to trend bilirubin If noted improvement in bilirubin tomorrow patient tolerating diet and we can advance patient possibly to be cleared tomorrow for discharge Dr. Navarro to be updated on patient's status Surgical team to follow patient closely Vitals/Labs Vital Signs Date Time Temp Pulse Resp B/P (MAP) Pulse Ox O2 Delivery O2 Flow Rate FiO2 10/26/24 09:40 90 18 N/Cannula Low lpm 2.0 28 10/26/24 07:51 98.2 112/59 92 Laboratory Tests 10/26/24 05:53 Medications Current Medications Lactated Ringer's 1,000 ml BOLUS STAT IV Last administered on 10/25/24at 00:47; Start 10/25/24 at 00:22; Stop 10/25/24 at 00:29; Status DC Cyclobenzaprine HCl 10 mg ONCE ONCE PO Last administered on 10/25/24at 01:00; Start 10/25/24 at 01:00; Stop 10/25/24 at 01:01; Status DC Ketorolac Tromethamine 30 mg ONCE ONCE IVP Last administered on 10/25/24at 01:00; Start 10/25/24 at 01:00; Stop 10/25/24 at 01:01; Status DC Lidocaine HCl 10 ml ONCE ONCE PO Last administered on 10/25/24at 01:00; Start 10/25/24 at 01:00; Stop 10/25/24 at 01:01; Status DC Al Hydroxide/Mg Hydroxide 30 ml ONCE ONCE PO Last administered on 10/25/24at 01:00; Start 10/25/24 at 01:00; Stop 10/25/24 at 01:01; Status DC Pantoprazole Sodium 40 mg ONCE ONCE IVP Last administered on 10/25/24at 01:00; Start 10/25/24 at 01:00; Stop 10/25/24 at 01:01; Status DC Ondansetron HCl 4 mg ONCE ONCE IVP Last administered on 10/25/24at 01:17; Start 10/25/24 at 01:30; Stop 10/25/24 at 01:31; Status DC Iohexol 35,000 mg STK-MED ONCE IV; Start 10/25/24 at 01:51; Stop 10/25/24 at 01:52; Status DC Cefazolin Sodium 1 gm ONCE STAT IVP Last administered on 10/25/24at 02:10; Start 10/25/24 at 01:57; Stop 10/25/24 at 02:03; Status DC Fentanyl Citrate 50 mcg ONCE ONCE IVP Last administered on 10/25/24at 02:19; Start 10/25/24 at 02:30; Stop 10/25/24 at 02:31; Status DC Insulin Human Regular 10 unit ONCE ONCE SQ Last administered on 10/25/24at 02:27; Start 10/25/24 at 02:30; Stop 10/25/24 at 02:31; Status DC Fentanyl Citrate 50 mcg ONCE ONCE IVP Last administered on 10/25/24at 02:52; Start 10/25/24 at 03:00; Stop 10/25/24 at 03:01; Status DC Ketorolac Tromethamine 30 mg ONCE ONCE IVP Last administered on 10/25/24at 03:33; Start 10/25/24 at 03:30; Stop 10/25/24 at 03:31; Status DC Hydromorphone HCl 1 mg ONCE ONCE IVP Last administered on 10/25/24at 06:53; Start 10/25/24 at 07:00; Stop 10/25/24 at 07:01; Status DC Sodium Chloride 1,000 ml @ 125 mls/hr Q8H IV Last administered on 10/26/24at 05:50; Start 10/25/24 at 07:00; Stop 11/24/24 at 06:59 Ceftriaxone Sodium 1 gm Q24H IVPB Last administered on 10/26/24at 08:13; Start 10/25/24 at 09:00; Stop 11/04/24 at 08:59 Hydromorphone HCl 0.5 mg Q4H PRN IVP Last administered on 10/26/24at 02:35; Start 10/25/24 at 07:00; Stop 10/30/24 at 06:59 Ondansetron HCl 4 mg Q6H PRN IVP Last administered on 10/26/24at 02:39; Start 10/25/24 at 07:00; Stop 11/24/24 at 06:59 Acetaminophen 650 mg Q6H PRN PO; Start 10/25/24 at 14:00; Stop 11/24/24 at 13:59 Acetaminophen 650 mg Q4H PRN PO; Start 10/25/24 at 14:00; Stop 11/24/24 at 13:59 Al Hydroxide/Mg Hydroxide 30 ml Q6H PRN PO; Start 10/25/24 at 14:00; Stop 11/24/24 at 13:59 Lactulose 20 gm BID PRN PO; Start 10/25/24 at 14:00; Stop 11/24/24 at 13:59 Guaifenesin/ Dextromethorphan 10 ml Q4H PRN PO; Start 10/25/24 at 14:00; Stop 11/24/24 at 13:59 Albuterol Sulfate 2.5 mg [id number] PRN IH Last administered on 10/25/24at 14:34; Start 10/25/24 at 14:00; Stop 11/24/24 at 13:59 Enoxaparin Sodium 40 mg DAILY SQ Last administered on 10/26/24at 08:14; Start 10/26/24 at 09:00; Stop 11/25/24 at 08:59 Hydralazine HCl 10 mg Q6H PRN IV; Start 10/25/24 at 14:00; Stop 11/24/24 at 13:59 Famotidine 20 mg DAILY IV Last administered on 10/26/24at 08:13; Start 10/26/24 at 09:00; Stop 11/25/24 at 08:59 Dextrose 50 ml AD PRN IV; Start 10/25/24 at 14:00; Stop 11/24/24 at 13:59 Glucagon 1 mg AD PRN IM; Start 10/25/24 at 14:00; Stop 11/24/24 at 13:59 Insulin Human Regular INSULIN SLIDING SCAL... ACHS SQ Last administered on 10/26/24at 06:22; Start 10/25/24 at 16:30; Stop 11/24/24 at 16:29 Potassium Chloride 100 ml @ 100 mls/hr AD PRN IV; Start 10/25/24 at 14:00; Stop 11/24/24 at 13:59 Potassium Chloride 20 meq AD PRN PO; Start 10/25/24 at 14:00; Stop 11/24/24 at 13:59 Potassium Chloride 20 meq AD PRN PO; Start 10/25/24 at 14:00; Stop 11/24/24 at 13:59 Potassium Chloride 100 ml @ 50 mls/hr AD PRN IV; Start 10/25/24 at 14:00; Stop 10/25/24 at 14:04; Status DC Magnesium Sulfate 50 ml @ 0 mls/hr PROTOCOL PRN IV; Start 10/25/24 at 14:00; Stop 11/24/24 at 13:59 Bupivacaine HCl 2.5 mg STK-MED ONCE IJ Last administered on 10/25/24at 16:21; Start 10/25/24 at 14:36; Stop 10/25/24 at 14:37; Status DC Bupivacaine HCl 2.5 mg STK-MED ONCE IJ Last administered on 10/25/24at 16:21; Start 10/25/24 at 14:37; Stop 10/25/24 at 14:37; Status DC Indocyanine Green 25 mg STK-MED ONCE IJ Last administered on 10/25/24at 15:20; Start 10/25/24 at 14:38; Stop 10/25/24 at 14:38; Status DC Lidocaine HCl 100 mg STK-MED ONCE .ROUTE; Start 10/25/24 at 15:23; Stop 10/25/24 at 15:24; Status DC Propofol 200 mg STK-MED ONCE IV; Start 10/25/24 at 15:24; Stop 10/25/24 at 15:24; Status DC Succinylcholine Chloride 200 mg STK-MED ONCE .ROUTE; Start 10/25/24 at 15:24; Stop 10/25/24 at 15:24; Status DC Midazolam HCl 2 mg STK-MED ONCE .ROUTE; Start 10/25/24 at 15:24; Stop 10/25/24 at 15:24; Status DC Rocuronium [place] 50 mg STK-MED ONCE .ROUTE; Start 10/25/24 at 15:24; Stop 10/25/24 at 15:24; Status DC Fentanyl Citrate 100 mcg STK-MED ONCE .ROUTE; Start 10/25/24 at 15:24; Stop 10/25/24 at 15:24; Status DC Propofol 200 mg STK-MED ONCE IV; Start 10/25/24 at 16:38; Stop 10/25/24 at 16:38; Status DC Acetaminophen 100 ml @ As Directed STK-MED ONCE .ROUTE Last administered on 10/25/24at 17:21; Start 10/25/24 at 17:07; Stop 10/25/24 at 17:07; Status DC Morphine Sulfate 2 mg Q6H6 PRN IVP; Start 10/25/24 at 20:00; Stop 10/26/24 at 08:58; Status DC Tramadol HCl 50 mg Q4H PRN PO; Start 10/26/24 at 09:00; Stop 10/31/24 at 08:59 Tramadol HCl 100 mg Q4H PRN PO; Start 10/26/24 at 09:00; Stop 10/31/24 at 08:59 LAMONT MEJIA Jr. October 26, 2024 10:55
--- NOTE | 2024-10-26 12:59 | PN ---
Subjective Review of Systems PROGRESS NOTE Date of Visit: October 26, 2024 Time of Visit: 12:53 Events since last encounter HAVING SOME POST OP PAIN BUT BETTER THAN BEFORE SURGERY Subjective HAS BEEN UP WALKING BUT NOT MUCH General: No Fever, No Chills, No Night Sweats, No Fatigue, No Malaise, No Appetite, No Other HEENT: No Head Aches, No Visual Changes, No Eye Pain, No Ear Pain, No Dysphasia, No Sinus Congestion, No Post Nasal Drip, No Sore Throat, No Other Pulmonary: No Dyspnea, No Cough, No Pleuritic Chest Pain, No Other Cardiovascular: No: Chest Pain, Palpitations, Orthopnea, Paroxysmal Noc. Dyspnea, Edema, Lt Headedness, Other Gastrointestinal: Nausea, Abdominal Pain; No: Vomiting, Diarrhea, Constipation, Melena, Hematochezia, Other Genitourinary: No Dysuria, No Frequency, No Incontinence, No Hematuria, No Retention, No Other Musculoskeletal: No: other, neck pain, shoulder pain, arm pain, back pain, hand pain, leg pain, foot pain Skin: No Urticaria, No Rash, No Other Neurological: No: Weakness, Numbness, Incoordination, Change in speech, Confusion, Seizures, Other Objective Vitals and I/O Vital Sign (Last 24 Hours) 10/26/24 10/26/24 09:40 12:00 Temp 99.0 Pulse 99 Resp 19 B/P (MAP) 122/54 Pulse Ox 93 O2 Delivery Nasal Cannula O2 Flow Rate 3.0 FiO2 28 General: Alert, Oriented X3, Cooperative, No acute distress HEENT: Atraumatic, PERRLA, EOMI Neck: Supple, No JVD, No thyromegaly Lungs: Clear to auscultation, Normal air movement Heart: Regular rate, Regular rhythm, Normal S1 Abdomen: Soft, Other (DECREASED BS BUT NO REBOUND AND NO GUARDING) Extremities: No clubbing, No cyanosis, No edema Skin: No rashes, No breakdown Neuro: Normal speech, Strength at 5/5 X4 ext, Normal tone Psych/Mental Status: Mental status NL, Mood NL, Thoughts/Content NL Results RADIOLOGY: [] EKG: [] Laboratory Tests Test 10/25/24 17:45 10/25/24 19:28 10/26/24 05:46 10/26/24 05:53 Whole Blood Glucose 157 MG/DL (70-110) H 156 MG/DL (70-110) H 189 MG/DL (70-110) H White Blood Count 14.5 K/uL (4.8-10.8) H Red Blood Count 4.55 MIL/uL (4.00-5.50) Hemoglobin 13.6 g/dL (12.0-16.0) Hematocrit 42.7 % (36-48) Mean Corpuscular Volume 93.8 fL (79-99) Mean Corpuscular Hemoglobin 29.9 pg (27.0-33.0) Mean Corpuscular Hemoglobin Concent 31.9 g/dL (32.0-36.0) L Red Cell Distribution Width 13.2 % (11.0-15.5) Platelet Count 256 K/uL (130-400) Mean Platelet Volume 10.1 fL (7.5-10.5) Immature Granulocyte % (Auto) 0.5 % (0-1) Neutrophils (%) (Auto) 77.5 % (40.0-77.0) H Lymphocytes (%) (Auto) 11.3 % (21.0-51.0) L Monocytes (%) (Auto) 10.4 % (3.0-13.0) Eosinophils (%) (Auto) 0.0 % (0.0-8.0) Basophils (%) (Auto) 0.3 % (0.0-5.0) Neutrophils # (Auto) 11.2 K/uL (1.8-7.7) H Lymphocytes # (Auto) 1.6 K/uL (1.0-4.8) Monocytes # (Auto) 1.5 K/uL (0.1-1.0) H Eosinophils # (Auto) 0.00 K/uL (0.00-0.70) Basophils # (Auto) 0.04 K/uL (0.00-0.20) Absolute Immature Granulocyte (auto 0.07 K/uL (0-1) Nucleated Red Blood Cells 0.0 % (0.0-0.19) Sodium Level 137 mmol/L (136-145) Potassium Level 4.4 mmol/L (3.5-5.1) Chloride Level 100 mmol/L (101-111) L Carbon Dioxide Level 28 mmol/L (21-32) Blood Urea Nitrogen 12 mg/dL (7-18) Creatinine 0.9 mg/dL (0.5-1.0) Glomerular Filtration Rate Calc 70 mL/min (>90) Random Glucose 186 mg/dL (70-105) H Total Calcium 8.4 mg/dL (8.5-10.1) L Total Bilirubin 4.5 mg/dL (0.2-1.0) H Direct Bilirubin 3.6 mg/dL (0.0-0.3) H Aspartate Amino Transf (AST/SGOT) 383 U/L (10-37) H Alanine Aminotransferase (ALT/SGPT) 474 U/L (12-78) H Alkaline Phosphatase 245 U/L (50-136) H Total Protein 7.4 g/dL (6.0-8.3) Albumin 3.0 g/dL (3.5-5.0) L Test 10/26/24 10:58 Whole Blood Glucose 162 MG/DL (70-110) H Medications Current Medications Lactated Ringer's 1,000 ml BOLUS STAT IV Last administered on 10/25/24at 00:47; Start 10/25/24 at 00:22; Stop 10/25/24 at 00:29; Status DC Cyclobenzaprine HCl 10 mg ONCE ONCE PO Last administered on 10/25/24at 01:00; Start 10/25/24 at 01:00; Stop 10/25/24 at 01:01; Status DC Ketorolac Tromethamine 30 mg ONCE ONCE IVP Last administered on 10/25/24at 01:00; Start 10/25/24 at 01:00; Stop 10/25/24 at 01:01; Status DC Lidocaine HCl 10 ml ONCE ONCE PO Last administered on 10/25/24at 01:00; Start 10/25/24 at 01:00; Stop 10/25/24 at 01:01; Status DC Al Hydroxide/Mg Hydroxide 30 ml ONCE ONCE PO Last administered on 10/25/24at 01:00; Start 10/25/24 at 01:00; Stop 10/25/24 at 01:01; Status DC Pantoprazole Sodium 40 mg ONCE ONCE IVP Last administered on 10/25/24at 01:00; Start 10/25/24 at 01:00; Stop 10/25/24 at 01:01; Status DC Ondansetron HCl 4 mg ONCE ONCE IVP Last administered on 10/25/24at 01:17; Start 10/25/24 at 01:30; Stop 10/25/24 at 01:31; Status DC Iohexol 35,000 mg STK-MED ONCE IV; Start 10/25/24 at 01:51; Stop 10/25/24 at 01:52; Status DC Cefazolin Sodium 1 gm ONCE STAT IVP Last administered on 10/25/24at 02:10; Start 10/25/24 at 01:57; Stop 10/25/24 at 02:03; Status DC Fentanyl Citrate 50 mcg ONCE ONCE IVP Last administered on 10/25/24at 02:19; Start 10/25/24 at 02:30; Stop 10/25/24 at 02:31; Status DC Insulin Human Regular 10 unit ONCE ONCE SQ Last administered on 10/25/24at 02:27; Start 10/25/24 at 02:30; Stop 10/25/24 at 02:31; Status DC Fentanyl Citrate 50 mcg ONCE ONCE IVP Last administered on 10/25/24at 02:52; Start 10/25/24 at 03:00; Stop 10/25/24 at 03:01; Status DC Ketorolac Tromethamine 30 mg ONCE ONCE IVP Last administered on 10/25/24at 03:33; Start 10/25/24 at 03:30; Stop 10/25/24 at 03:31; Status DC Hydromorphone HCl 1 mg ONCE ONCE IVP Last administered on 10/25/24at 06:53; Start 10/25/24 at 07:00; Stop 10/25/24 at 07:01; Status DC Sodium Chloride 1,000 ml @ 125 mls/hr Q8H IV Last administered on 10/26/24at 05:50; Start 10/25/24 at 07:00; Stop 11/24/24 at 06:59 Ceftriaxone Sodium 1 gm Q24H IVPB Last administered on 10/26/24at 08:13; Start 10/25/24 at 09:00; Stop 11/04/24 at 08:59 Hydromorphone HCl 0.5 mg Q4H PRN IVP Last administered on 10/26/24at 02:35; Start 10/25/24 at 07:00; Stop 10/30/24 at 06:59 Ondansetron HCl 4 mg Q6H PRN IVP Last administered on 10/26/24at 02:39; Start 10/25/24 at 07:00; Stop 11/24/24 at 06:59 Acetaminophen 650 mg Q6H PRN PO; Start 10/25/24 at 14:00; Stop 11/24/24 at 13:59 Acetaminophen 650 mg Q4H PRN PO; Start 10/25/24 at 14:00; Stop 11/24/24 at 13:59 Al Hydroxide/Mg Hydroxide 30 ml Q6H PRN PO; Start 10/25/24 at 14:00; Stop 11/24/24 at 13:59 Lactulose 20 gm BID PRN PO; Start 10/25/24 at 14:00; Stop 11/24/24 at 13:59 Guaifenesin/ Dextromethorphan 10 ml Q4H PRN PO; Start 10/25/24 at 14:00; Stop 11/24/24 at 13:59 Albuterol Sulfate 2.5 mg [id number] PRN IH Last administered on 10/25/24at 14:34; Start 10/25/24 at 14:00; Stop 11/24/24 at 13:59 Enoxaparin Sodium 40 mg DAILY SQ Last administered on 10/26/24at 08:14; Start 10/26/24 at 09:00; Stop 11/25/24 at 08:59 Hydralazine HCl 10 mg Q6H PRN IV; Start 10/25/24 at 14:00; Stop 11/24/24 at 13:59 Famotidine 20 mg DAILY IV Last administered on 10/26/24at 08:13; Start 10/26/24 at 09:00; Stop 11/25/24 at 08:59 Dextrose 50 ml AD PRN IV; Start 10/25/24 at 14:00; Stop 11/24/24 at 13:59 Glucagon 1 mg AD PRN IM; Start 10/25/24 at 14:00; Stop 11/24/24 at 13:59 Insulin Human Regular INSULIN SLIDING SCAL... ACHS SQ Last administered on 10/26/24at 06:22; Start 10/25/24 at 16:30; Stop 11/24/24 at 16:29 Potassium Chloride 100 ml @ 100 mls/hr AD PRN IV; Start 10/25/24 at 14:00; Stop 11/24/24 at 13:59 Potassium Chloride 20 meq AD PRN PO; Start 10/25/24 at 14:00; Stop 11/24/24 at 13:59 Potassium Chloride 20 meq AD PRN PO; Start 10/25/24 at 14:00; Stop 11/24/24 at 13:59 Potassium Chloride 100 ml @ 50 mls/hr AD PRN IV; Start 10/25/24 at 14:00; Stop 10/25/24 at 14:04; Status DC Magnesium Sulfate 50 ml @ 0 mls/hr PROTOCOL PRN IV; Start 10/25/24 at 14:00; Stop 11/24/24 at 13:59 Bupivacaine HCl 2.5 mg STK-MED ONCE IJ Last administered on 10/25/24at 16:21; Start 10/25/24 at 14:36; Stop 10/25/24 at 14:37; Status DC Bupivacaine HCl 2.5 mg STK-MED ONCE IJ Last administered on 10/25/24at 16:21; Start 10/25/24 at 14:37; Stop 10/25/24 at 14:37; Status DC Indocyanine Green 25 mg STK-MED ONCE IJ Last administered on 10/25/24at 15:20; Start 10/25/24 at 14:38; Stop 10/25/24 at 14:38; Status DC Lidocaine HCl 100 mg STK-MED ONCE .ROUTE; Start 10/25/24 at 15:23; Stop 10/25/24 at 15:24; Status DC Propofol 200 mg STK-MED ONCE IV; Start 10/25/24 at 15:24; Stop 10/25/24 at 15:24; Status DC Succinylcholine Chloride 200 mg STK-MED ONCE .ROUTE; Start 10/25/24 at 15:24; Stop 10/25/24 at 15:24; Status DC Midazolam HCl 2 mg STK-MED ONCE .ROUTE; Start 10/25/24 at 15:24; Stop 10/25/24 at 15:24; Status DC Rocuronium [place] 50 mg STK-MED ONCE .ROUTE; Start 10/25/24 at 15:24; Stop 10/25/24 at 15:24; Status DC Fentanyl Citrate 100 mcg STK-MED ONCE .ROUTE; Start 10/25/24 at 15:24; Stop 10/25/24 at 15:24; Status DC Propofol 200 mg STK-MED ONCE IV; Start 10/25/24 at 16:38; Stop 10/25/24 at 16:38; Status DC Acetaminophen 100 ml @ As Directed STK-MED ONCE .ROUTE Last administered on 10/25/24at 17:21; Start 10/25/24 at 17:07; Stop 10/25/24 at 17:07; Status DC Morphine Sulfate 2 mg Q6H6 PRN IVP; Start 10/25/24 at 20:00; Stop 10/26/24 at 08:58; Status DC Tramadol HCl 50 mg Q4H PRN PO; Start 10/26/24 at 09:00; Stop 10/31/24 at 08:59 Tramadol HCl 100 mg Q4H PRN PO; Start 10/26/24 at 09:00; Stop 10/31/24 at 08:59 Assessment/Plan RADIOLOGY ABD PELWWO - CT ABDOMEN/PELVIS W/WO CONTRAS Findings: No evidence of nephro or ureterolithiasis is found. No hydronephrosis or ureteral dilatation is seen. The lung bases are clear. The stomach is unremarkable. It shows no wall thickening. No gross ulceration is seen. It is not overly distended. There are no surrounding inflammatory changes. No wall lesions are identified to suggest cancer. The spleen is unremarkable. It is not enlarged. The pancreas shows normal anatomy. It is not fatty replaced. It shows no lesions. The pancreatic duct is not dilated. There is evidence of cholelithiasis. The gallbladder is hydropic. No evidence of acute or chronic inflammation is seen. The adrenal glands are unremarkable. There is no enlargement. No lesions are noted. The liver is unremarkable. It shows no focal masses. The appendix is unremarkable. It shows no evidence of inflammation. No appendicolith is seen.The small bowel is unremarkable. There is no evidence of dilatation to suggest obstruction. No evidence of adynamic ileus is seen. There is no small bowel wall thickening to suggest enteritis. There is diverticulosis. There is no evidence of acute inflammation to suggest diverticulitis. The colon is otherwise unremarkable. The urinary bladder is unremarkable. There is no wall thickening to suggest tumor or inflammation. There are no intraluminal calculi. There are no diverticula. There is no evidence of chronic bladder outlet obstruction. There is no evidence of urinary bladder distention to suggest urinary retention. The other pelvic structures are unremarkable. The bony and vascular structures are unremarkable for the patient's age. IMPRESSION: Hydropic gallbladder with cholelithiasis. Diverticulosis of the colon. No acute inflammation. This study was performed using dose reduction techniques to include automated exposure control and/or adjustment of the mA and/or kV according to patient size. [id number] - US ABDOMINAL RUQ\LTD Findings: The liver shows fatty infiltration and is enlarged, measuring 19 cm and is otherwise unremarkable. Doppler evaluation shows patent portal and hepatic veins. The gallbladder shows cholelithiasis. There is a positive Nunez's sign and this may represent acute cholecystitis. The gallbladder is hydropic. The gallbladder wall measures 2 mm. The common bile duct not visualized due to abundant overlying bowel gas. The right kidney measures 10.9 x 5.4 cm- it shows no hydronephrosis or calculi, masses or other abnormalities. The pancreas is unremarkable. The aorta and inferior vena cava show no significant abnormalities. Small right pleural effusion. IMPRESSION: FATTY LIVER INFILTRATION AND HEPATOMEGALY. Cholelithiasis and hydropic gallbladder and possible acute cholecystitis. Right pleural effusion. OTHERWISE NORMAL RIGHT UPPER QUADRANT ABDOMINAL ULTRASOUND. 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- 01/2022 HH AND RENAL DISEASE WITH CKD 2 W/O CHF STRESS TEST NEG 03/2022 DJD GEN MULTIPLE SITES SHE PRESENTED WITH ACUTE BILIARY COLI AND FOUND TO HAVE CHOLELITHIASIS WITH SUSPECTED ACUTE CHOLECYSTITIS S/P ROBOTIC CHOLECYSTECTOMY PLAN: STARTED ON CLEAR LIQUID DIET HYDRATE WITH IVF CONT IV ANALGESICS AND ANTI EMETICS PRN CONT IV ROCEPHIN SUPPLEMENT ELECTROLYTES HOLDING ANTI HYPERTENSIVES AND ADJUST NEEDED HOLDING OZEMPIC AND MONITOR GLUCOSE AND COVER WITH ADDITIONAL INSULIN NEEDED TEDS SCD'S AND LOVENOX FOR DVT PROPHYLAXIS PEPCID IV FOR STRESS ULCER PROPHYLAXIS INCREASE REHAB TOLERATED - WILL ADD P.T. DUE TO LOW MOBILITY ANSWERED ALL QUESTIONS FOR PATIENT WITH DAUGHTER AT BEDSIDE MANI RODNEY MD October 26, 2024 12:59
[2024-10-26] MEDS: traMADol HCL 50 MG TABLET PO PRN (17:06)
[2024-10-27] VITALS (10 sets, daily range): BP systolic 103–134; BP diastolic 56–66; PULSE 69–108; RESP 18–20; TEMP 98.2–99.5; O2SAT 93–99
[2024-10-27 05:01] LABS: HEMATOCRIT 38.7 % (36-48); MEAN CORPUSCULAR HEMOGLOBIN 29.8 pg (27.0-33.0); MEAN CORPUSCULAR HGB CONC 31.5 g/dL (32.0-36.0); MEAN CORPUSCULAR VOLUME 94.4 fL (79-99); RED BLOOD CELL COUNT(AUTO) 4.1 MIL/uL (4.00-5.50); RED CELL DISTRIBUTION WIDTH 13.2 % (11.0-15.5); WHITE BLOOD COUNT (AUTO) 15.4 K/uL (4.8-10.8)
[2024-10-27 05:36] LABS: ALBUMIN 2.6 g/dL (3.5-5.0); BILIRUBIN,DIRECT 1.3 mg/dL (0.0-0.3); CREATININE 0.9 mg/dL (0.5-1.0); POTASSIUM 4.2 mmol/L (3.5-5.1); TOTAL PROTEIN, SERUM 7.2 g/dL (6.0-8.3)
[2024-10-27] MEDS: PANTOPrazole 40 MG TAB DR PO SCH (10:08)
[2024-10-27] MEDS: CLINDAMYCIN IVPB 600MG/50ML 50 ML IV SCH (11:01)
--- NOTE | 2024-10-27 11:41 | PN ---
Subjective Review of Systems PROGRESS NOTE Date of Visit: October 27, 2024 Time of Visit: 11:38 Events since last encounter PAIN IS SUBSIDING Subjective PASSING GAS BUT NO BM YET AND STILL HAS SOME NAUSEA General: No Fever, No Chills, No Night Sweats, No Fatigue, No Malaise, No Appetite, No Other HEENT: No Head Aches, No Visual Changes, No Eye Pain, No Ear Pain, No Dysphasia, No Sinus Congestion, No Post Nasal Drip, No Sore Throat, No Other Pulmonary: No Dyspnea, No Cough, No Pleuritic Chest Pain, No Other Cardiovascular: No: Chest Pain, Palpitations, Orthopnea, Paroxysmal Noc. Dyspnea, Edema, Lt Headedness, Other Gastrointestinal: Nausea, Abdominal Pain; No: Vomiting, Diarrhea, Constipation, Melena, Hematochezia, Other Genitourinary: No Dysuria, No Frequency, No Incontinence, No Hematuria, No Retention, No Other Musculoskeletal: No: other, neck pain, shoulder pain, arm pain, back pain, hand pain, leg pain, foot pain Skin: No Urticaria, No Rash, No Other Neurological: No: Weakness, Numbness, Incoordination, Change in speech, Confusion, Seizures, Other Objective Vitals and I/O Vital Sign (Last 24 Hours) 10/27/24 10/27/24 08:01 09:15 Temp 98.2 Pulse 108 Resp 18 B/P (MAP) 128/62 Pulse Ox 93 O2 Delivery Nasal Cannula* O2 Flow Rate 2 FiO2 28 Intake & Output (last 24hrs) 10/26/24 10/26/24 10/27/24 15:00 23:00 07:00 Intake Total 1500.0 ml Balance 1500.0 ml General: Alert, Oriented X3, Cooperative, No acute distress HEENT: Atraumatic, PERRLA, EOMI Neck: Supple, No JVD, No thyromegaly Lungs: Clear to auscultation, Normal air movement Heart: Regular rate, Regular rhythm, Normal S1 Abdomen: Soft, Other (POS BS AND INCISIONS INTACT) Extremities: No clubbing, No cyanosis, No edema Skin: No rashes, No breakdown Neuro: Normal speech, Strength at 5/5 X4 ext, Normal tone Psych/Mental Status: Mental status NL, Mood NL, Thoughts/Content NL Results RADIOLOGY: [] EKG: [] Laboratory Tests Test 10/26/24 15:21 10/26/24 19:54 10/27/24 04:55 10/27/24 05:42 Whole Blood Glucose 160 MG/DL (70-110) H 141 MG/DL (70-110) H 155 MG/DL (70-110) H White Blood Count 15.4 K/uL (4.8-10.8) H Red Blood Count 4.10 MIL/uL (4.00-5.50) Hemoglobin 12.2 g/dL (12.0-16.0) Hematocrit 38.7 % (36-48) Mean Corpuscular Volume 94.4 fL (79-99) Mean Corpuscular Hemoglobin 29.8 pg (27.0-33.0) Mean Corpuscular Hemoglobin Concent 31.5 g/dL (32.0-36.0) L Red Cell Distribution Width 13.2 % (11.0-15.5) Platelet Count 213 K/uL (130-400) Mean Platelet Volume 10.2 fL (7.5-10.5) Nucleated Red Blood Cells 0.0 % (0.0-0.19) Sodium Level 136 mmol/L (136-145) Potassium Level 4.2 mmol/L (3.5-5.1) Chloride Level 100 mmol/L (101-111) L Carbon Dioxide Level 28 mmol/L (21-32) Blood Urea Nitrogen 6 mg/dL (7-18) L Creatinine 0.9 mg/dL (0.5-1.0) Glomerular Filtration Rate Calc 70 mL/min (>90) Random Glucose 168 mg/dL (70-105) H Total Calcium 8.0 mg/dL (8.5-10.1) L Total Bilirubin 2.0 mg/dL (0.2-1.0) #H Direct Bilirubin 1.3 mg/dL (0.0-0.3) #H Aspartate Amino Transf (AST/SGOT) 131 U/L (10-37) H Alanine Aminotransferase (ALT/SGPT) 279 U/L (12-78) #H Alkaline Phosphatase 194 U/L (50-136) H Total Protein 7.2 g/dL (6.0-8.3) Albumin 2.6 g/dL (3.5-5.0) L Test 10/27/24 11:00 Whole Blood Glucose 144 MG/DL (70-110) H Medications Current Medications Lactated Ringer's 1,000 ml BOLUS STAT IV Last administered on 10/25/24at 00:47; Start 10/25/24 at 00:22; Stop 10/25/24 at 00:29; Status DC Cyclobenzaprine HCl 10 mg ONCE ONCE PO Last administered on 10/25/24at 01:00; Start 10/25/24 at 01:00; Stop 10/25/24 at 01:01; Status DC Ketorolac Tromethamine 30 mg ONCE ONCE IVP Last administered on 10/25/24at 01:00; Start 10/25/24 at 01:00; Stop 10/25/24 at 01:01; Status DC Lidocaine HCl 10 ml ONCE ONCE PO Last administered on 10/25/24at 01:00; Start 10/25/24 at 01:00; Stop 10/25/24 at 01:01; Status DC Al Hydroxide/Mg Hydroxide 30 ml ONCE ONCE PO Last administered on 10/25/24at 01:00; Start 10/25/24 at 01:00; Stop 10/25/24 at 01:01; Status DC Pantoprazole Sodium 40 mg ONCE ONCE IVP Last administered on 10/25/24at 01:00; Start 10/25/24 at 01:00; Stop 10/25/24 at 01:01; Status DC Ondansetron HCl 4 mg ONCE ONCE IVP Last administered on 10/25/24at 01:17; Start 10/25/24 at 01:30; Stop 10/25/24 at 01:31; Status DC Iohexol 35,000 mg STK-MED ONCE IV; Start 10/25/24 at 01:51; Stop 10/25/24 at 01:52; Status DC Cefazolin Sodium 1 gm ONCE STAT IVP Last administered on 10/25/24at 02:10; Start 10/25/24 at 01:57; Stop 10/25/24 at 02:03; Status DC Fentanyl Citrate 50 mcg ONCE ONCE IVP Last administered on 10/25/24at 02:19; Start 10/25/24 at 02:30; Stop 10/25/24 at 02:31; Status DC Insulin Human Regular 10 unit ONCE ONCE SQ Last administered on 10/25/24at 02:27; Start 10/25/24 at 02:30; Stop 10/25/24 at 02:31; Status DC Fentanyl Citrate 50 mcg ONCE ONCE IVP Last administered on 10/25/24at 02:52; Start 10/25/24 at 03:00; Stop 10/25/24 at 03:01; Status DC Ketorolac Tromethamine 30 mg ONCE ONCE IVP Last administered on 10/25/24at 03:33; Start 10/25/24 at 03:30; Stop 10/25/24 at 03:31; Status DC Hydromorphone HCl 1 mg ONCE ONCE IVP Last administered on 10/25/24at 06:53; Start 10/25/24 at 07:00; Stop 10/25/24 at 07:01; Status DC Sodium Chloride 1,000 ml @ 75 mls/hr [id number] IV Last administered on 10/27/24at 10:21; Start 10/25/24 at 07:00; Stop 11/24/24 at 06:59 Ceftriaxone Sodium 1 gm Q24H IVPB Last administered on 10/27/24at 09:09; Start 10/25/24 at 09:00; Stop 11/04/24 at 08:59 Hydromorphone HCl 0.5 mg Q4H PRN IVP Last administered on 10/26/24at 02:35; Start 10/25/24 at 07:00; Stop 10/27/24 at 09:49; Status DC Ondansetron HCl 4 mg Q6H PRN IVP Last administered on 10/27/24at 09:12; Start 10/25/24 at 07:00; Stop 11/24/24 at 06:59 Acetaminophen 650 mg Q6H PRN PO; Start 10/25/24 at 14:00; Stop 11/24/24 at 13:59 Acetaminophen 650 mg Q4H PRN PO; Start 10/25/24 at 14:00; Stop 11/24/24 at 13:59 Al Hydroxide/Mg Hydroxide 30 ml Q6H PRN PO; Start 10/25/24 at 14:00; Stop 11/24/24 at 13:59 Lactulose 20 gm BID PRN PO; Start 10/25/24 at 14:00; Stop 11/24/24 at 13:59 Guaifenesin/ Dextromethorphan 10 ml Q4H PRN PO; Start 10/25/24 at 14:00; Stop 11/24/24 at 13:59 Albuterol Sulfate 2.5 mg [id number] PRN IH Last administered on 10/25/24at 14:34; Start 10/25/24 at 14:00; Stop 11/24/24 at 13:59 Enoxaparin Sodium 40 mg DAILY SQ Last administered on 10/27/24at 09:09; Start 10/26/24 at 09:00; Stop 11/25/24 at 08:59 Hydralazine HCl 10 mg Q6H PRN IV; Start 10/25/24 at 14:00; Stop 11/24/24 at 13:59 Famotidine 20 mg DAILY IV Last administered on 10/27/24at 09:09; Start 10/26/24 at 09:00; Stop 10/27/24 at 09:49; Status DC Dextrose 50 ml AD PRN IV; Start 10/25/24 at 14:00; Stop 11/24/24 at 13:59 Glucagon 1 mg AD PRN IM; Start 10/25/24 at 14:00; Stop 11/24/24 at 13:59 Insulin Human Regular INSULIN SLIDING SCAL... ACHS SQ Last administered on 10/26/24at 06:22; Start 10/25/24 at 16:30; Stop 11/24/24 at 16:29 Potassium Chloride 100 ml @ 100 mls/hr AD PRN IV; Start 10/25/24 at 14:00; Stop 11/24/24 at 13:59 Potassium Chloride 20 meq AD PRN PO; Start 10/25/24 at 14:00; Stop 11/24/24 at 13:59 Potassium Chloride 20 meq AD PRN PO; Start 10/25/24 at 14:00; Stop 11/24/24 at 13:59 Potassium Chloride 100 ml @ 50 mls/hr AD PRN IV; Start 10/25/24 at 14:00; Stop 10/25/24 at 14:04; Status DC Magnesium Sulfate 50 ml @ 0 mls/hr PROTOCOL PRN IV; Start 10/25/24 at 14:00; Stop 11/24/24 at 13:59 Bupivacaine HCl 2.5 mg STK-MED ONCE IJ Last administered on 10/25/24at 16:21; Start 10/25/24 at 14:36; Stop 10/25/24 at 14:37; Status DC Bupivacaine HCl 2.5 mg STK-MED ONCE IJ Last administered on 10/25/24at 16:21; Start 10/25/24 at 14:37; Stop 10/25/24 at 14:37; Status DC Indocyanine Green 25 mg STK-MED ONCE IJ Last administered on 10/25/24at 15:20; Start 10/25/24 at 14:38; Stop 10/25/24 at 14:38; Status DC Lidocaine HCl 100 mg STK-MED ONCE .ROUTE; Start 10/25/24 at 15:23; Stop 10/25/24 at 15:24; Status DC Propofol 200 mg STK-MED ONCE IV; Start 10/25/24 at 15:24; Stop 10/25/24 at 15:24; Status DC Succinylcholine Chloride 200 mg STK-MED ONCE .ROUTE; Start 10/25/24 at 15:24; Stop 10/25/24 at 15:24; Status DC Midazolam HCl 2 mg STK-MED ONCE .ROUTE; Start 10/25/24 at 15:24; Stop 10/25/24 at 15:24; Status DC Rocuronium [place] 50 mg STK-MED ONCE .ROUTE; Start 10/25/24 at 15:24; Stop 10/25/24 at 15:24; Status DC Fentanyl Citrate 100 mcg STK-MED ONCE .ROUTE; Start 10/25/24 at 15:24; Stop 10/25/24 at 15:24; Status DC Propofol 200 mg STK-MED ONCE IV; Start 10/25/24 at 16:38; Stop 10/25/24 at 16:38; Status DC Acetaminophen 100 ml @ As Directed STK-MED ONCE .ROUTE Last administered on 10/25/24at 17:21; Start 10/25/24 at 17:07; Stop 10/25/24 at 17:07; Status DC Morphine Sulfate 2 mg Q6H6 PRN IVP; Start 10/25/24 at 20:00; Stop 10/26/24 at 08:58; Status DC Tramadol HCl 50 mg Q4H PRN PO; Start 10/26/24 at 09:00; Stop 10/31/24 at 08:59 Tramadol HCl 100 mg Q4H PRN PO Last administered on 10/26/24at 17:06; Start 10/26/24 at 09:00; Stop 10/31/24 at 08:59 Pantoprazole Sodium 40 mg DAILY PO Last administered on 10/27/24at 10:08; Start 10/27/24 at 10:00; Stop 11/26/24 at 09:59 Clindamycin HCl/ Dextrose 50 ml @ 100 mls/hr Q8H IV Last administered on 10/27/24at 11:01; Start 10/27/24 at 10:00; Stop 11/06/24 at 09:59 Assessment/Plan RADIOLOGY ABD PELWWO - CT ABDOMEN/PELVIS W/WO CONTRAS Findings: No evidence of nephro or ureterolithiasis is found. No hydronephrosis or ureteral dilatation is seen. The lung bases are clear. The stomach is unremarkable. It shows no wall thickening. No gross ulceration is seen. It is not overly distended. There are no surrounding inflammatory changes. No wall lesions are identified to suggest cancer. The spleen is unremarkable. It is not enlarged. The pancreas shows normal anatomy. It is not fatty replaced. It shows no lesions. The pancreatic duct is not dilated. There is evidence of cholelithiasis. The gallbladder is hydropic. No evidence of acute or chronic inflammation is seen. The adrenal glands are unremarkable. There is no enlargement. No lesions are noted. The liver is unremarkable. It shows no focal masses. The appendix is unremarkable. It shows no evidence of inflammation. No appendicolith is seen.The small bowel is unremarkable. There is no evidence of dilatation to suggest obstruction. No evidence of adynamic ileus is seen. There is no small bowel wall thickening to suggest enteritis. There is diverticulosis. There is no evidence of acute inflammation to suggest diverticulitis. The colon is otherwise unremarkable. The urinary bladder is unremarkable. There is no wall thickening to suggest tumor or inflammation. There are no intraluminal calculi. There are no diverticula. There is no evidence of chronic bladder outlet obstruction. There is no evidence of urinary bladder distention to suggest urinary retention. The other pelvic structures are unremarkable. The bony and vascular structures are unremarkable for the patient's age. IMPRESSION: Hydropic gallbladder with cholelithiasis. Diverticulosis of the colon. No acute inflammation. This study was performed using dose reduction techniques to include automated exposure control and/or adjustment of the mA and/or kV according to patient size. [id number] - US ABDOMINAL RUQ\LTD Findings: The liver shows fatty infiltration and is enlarged, measuring 19 cm and is otherwise unremarkable. Doppler evaluation shows patent portal and hepatic veins. The gallbladder shows cholelithiasis. There is a positive Nunez's sign and this may represent acute cholecystitis. The gallbladder is hydropic. The gallbladder wall measures 2 mm. The common bile duct not visualized due to abundant overlying bowel gas. The right kidney measures 10.9 x 5.4 cm- it shows no hydronephrosis or calculi, masses or other abnormalities. The pancreas is unremarkable. The aorta and inferior vena cava show no significant abnormalities. Small right pleural effusion. IMPRESSION: FATTY LIVER INFILTRATION AND HEPATOMEGALY. Cholelithiasis and hydropic gallbladder and possible acute cholecystitis. Right pleural effusion. OTHERWISE NORMAL RIGHT UPPER QUADRANT ABDOMINAL ULTRASOUND. 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- 01/2022 HH AND RENAL DISEASE WITH CKD 2 W/O CHF STRESS TEST NEG 03/2022 DJD GEN MULTIPLE SITES SHE PRESENTED WITH ACUTE BILIARY COLI AND FOUND TO HAVE CHOLELITHIASIS WITH SUSPECTED ACUTE CHOLECYSTITIS S/P ROBOTIC CHOLECYSTECTOMY PLAN: TOLERATING CLEAR LIQUID DIET WEAN IVF WEAN IV ANALGESICS AND ANTI EMETICS CONT IV ROCEPHIN AND ADD CLINDAMYCIN DUE TO PERSISTENT LEUKOCYTOSIS SUPPLEMENT ELECTROLYTES HOLDING ANTI HYPERTENSIVES AND ADJUST NEEDED HOLDING OZEMPIC AND MONITOR GLUCOSE AND COVER WITH ADDITIONAL INSULIN NEEDED TEDS SCD'S AND LOVENOX FOR DVT PROPHYLAXIS CHANGE IV PEPCID TO PO PANTOPRAZOLE INCREASE MOBILITY ANSWERED ALL QUESTIONS FOR PATIENT WITH DAUGHTER AT BEDSIDE MANI RODNEY MD October 27, 2024 11:40
--- NOTE | 2024-10-27 13:00 | NUR ---
Order received and spoke to Adriana, who stated she had just ambulated patient and her HR increased into the 130's. At rest, HR was in the 120's. Hold PT until patient medically stable.
--- NOTE | 2024-10-27 16:17 | PN ---
This is a 68-year-old female postop day two for cholecystectomy by Dr. Navarro Interval history: This 68-year-old female seen in her room resting White count slightly elevated with a bilirubin has trended down significantly Patient with a episodes of shortness of breath according to nursing No other acute events reported at this time Physical exam General: Awake alert and oriented Heart: Regular rate and rhythm} Lungs: Clear to auscultation no distress Abdomen: [Soft, nontender, nondistended Assessment : This is a 68-year-old female status post cholecystectomy Plan: Patient to remain overnight for observation Repeat CBC and CMP tomorrow If patient tolerating diet and labs unremarkable from surgical standpoint of cholecystectomy patient to be cleared for discharge Dr. Navarro to be updated on patient's status and surgical team to follow patient closely Vitals/Labs Vital Signs Date Time Temp Pulse Resp B/P (MAP) Pulse Ox O2 Delivery O2 Flow Rate FiO2 10/27/24 11:45 98.6 104 19 122/66 94 Nasal Cannula 3.0 10/27/24 09:15 28 Laboratory Tests 10/27/24 04:55 Medications Current Medications Lactated Ringer's 1,000 ml BOLUS STAT IV Last administered on 10/25/24at 00:47; Start 10/25/24 at 00:22; Stop 10/25/24 at 00:29; Status DC Cyclobenzaprine HCl 10 mg ONCE ONCE PO Last administered on 10/25/24at 01:00; Start 10/25/24 at 01:00; Stop 10/25/24 at 01:01; Status DC Ketorolac Tromethamine 30 mg ONCE ONCE IVP Last administered on 10/25/24at 01:00; Start 10/25/24 at 01:00; Stop 10/25/24 at 01:01; Status DC Lidocaine HCl 10 ml ONCE ONCE PO Last administered on 10/25/24at 01:00; Start 10/25/24 at 01:00; Stop 10/25/24 at 01:01; Status DC Al Hydroxide/Mg Hydroxide 30 ml ONCE ONCE PO Last administered on 10/25/24at 01:00; Start 10/25/24 at 01:00; Stop 10/25/24 at 01:01; Status DC Pantoprazole Sodium 40 mg ONCE ONCE IVP Last administered on 10/25/24at 01:00; Start 10/25/24 at 01:00; Stop 10/25/24 at 01:01; Status DC Ondansetron HCl 4 mg ONCE ONCE IVP Last administered on 10/25/24at 01:17; Start 10/25/24 at 01:30; Stop 10/25/24 at 01:31; Status DC Iohexol 35,000 mg STK-MED ONCE IV; Start 10/25/24 at 01:51; Stop 10/25/24 at 01:52; Status DC Cefazolin Sodium 1 gm ONCE STAT IVP Last administered on 10/25/24at 02:10; Start 10/25/24 at 01:57; Stop 10/25/24 at 02:03; Status DC Fentanyl Citrate 50 mcg ONCE ONCE IVP Last administered on 10/25/24at 02:19; Start 10/25/24 at 02:30; Stop 10/25/24 at 02:31; Status DC Insulin Human Regular 10 unit ONCE ONCE SQ Last administered on 10/25/24at 02:27; Start 10/25/24 at 02:30; Stop 10/25/24 at 02:31; Status DC Fentanyl Citrate 50 mcg ONCE ONCE IVP Last administered on 10/25/24at 02:52; Start 10/25/24 at 03:00; Stop 10/25/24 at 03:01; Status DC Ketorolac Tromethamine 30 mg ONCE ONCE IVP Last administered on 10/25/24at 03:33; Start 10/25/24 at 03:30; Stop 10/25/24 at 03:31; Status DC Hydromorphone HCl 1 mg ONCE ONCE IVP Last administered on 10/25/24at 06:53; Start 10/25/24 at 07:00; Stop 10/25/24 at 07:01; Status DC Sodium Chloride 1,000 ml @ 75 mls/hr [id number] IV Last administered on 10/27/24at 10:21; Start 10/25/24 at 07:00; Stop 10/27/24 at 15:35; Status DC Ceftriaxone Sodium 1 gm Q24H IVPB Last administered on 10/27/24at 09:09; Start 10/25/24 at 09:00; Stop 11/04/24 at 08:59 Hydromorphone HCl 0.5 mg Q4H PRN IVP Last administered on 10/26/24at 02:35; Start 10/25/24 at 07:00; Stop 10/27/24 at 09:49; Status DC Ondansetron HCl 4 mg Q6H PRN IVP Last administered on 10/27/24at 09:12; Start 10/25/24 at 07:00; Stop 11/24/24 at 06:59 Acetaminophen 650 mg Q6H PRN PO; Start 10/25/24 at 14:00; Stop 11/24/24 at 13:59 Acetaminophen 650 mg Q4H PRN PO; Start 10/25/24 at 14:00; Stop 11/24/24 at 13:59 Al Hydroxide/Mg Hydroxide 30 ml Q6H PRN PO; Start 10/25/24 at 14:00; Stop 11/24/24 at 13:59 Lactulose 20 gm BID PRN PO; Start 10/25/24 at 14:00; Stop 11/24/24 at 13:59 Guaifenesin/ Dextromethorphan 10 ml Q4H PRN PO; Start 10/25/24 at 14:00; Stop 11/24/24 at 13:59 Albuterol Sulfate 2.5 mg [id number] PRN IH Last administered on 10/25/24at 14:34; Start 10/25/24 at 14:00; Stop 11/24/24 at 13:59 Enoxaparin Sodium 40 mg DAILY SQ Last administered on 10/27/24at 09:09; Start 10/26/24 at 09:00; Stop 11/25/24 at 08:59 Hydralazine HCl 10 mg Q6H PRN IV; Start 10/25/24 at 14:00; Stop 11/24/24 at 13:59 Famotidine 20 mg DAILY IV Last administered on 10/27/24at 09:09; Start 10/26/24 at 09:00; Stop 10/27/24 at 09:49; Status DC Dextrose 50 ml AD PRN IV; Start 10/25/24 at 14:00; Stop 11/24/24 at 13:59 Glucagon 1 mg AD PRN IM; Start 10/25/24 at 14:00; Stop 11/24/24 at 13:59 Insulin Human Regular INSULIN SLIDING SCAL... ACHS SQ Last administered on 10/26/24at 06:22; Start 10/25/24 at 16:30; Stop 11/24/24 at 16:29 Potassium Chloride 100 ml @ 100 mls/hr AD PRN IV; Start 10/25/24 at 14:00; Stop 11/24/24 at 13:59 Potassium Chloride 20 meq AD PRN PO; Start 10/25/24 at 14:00; Stop 11/24/24 at 13:59 Potassium Chloride 20 meq AD PRN PO; Start 10/25/24 at 14:00; Stop 11/24/24 at 13:59 Potassium Chloride 100 ml @ 50 mls/hr AD PRN IV; Start 10/25/24 at 14:00; Stop 10/25/24 at 14:04; Status DC Magnesium Sulfate 50 ml @ 0 mls/hr PROTOCOL PRN IV; Start 10/25/24 at 14:00; Stop 11/24/24 at 13:59 Bupivacaine HCl 2.5 mg STK-MED ONCE IJ Last administered on 10/25/24at 16:21; Start 10/25/24 at 14:36; Stop 10/25/24 at 14:37; Status DC Bupivacaine HCl 2.5 mg STK-MED ONCE IJ Last administered on 10/25/24at 16:21; Start 10/25/24 at 14:37; Stop 10/25/24 at 14:37; Status DC Indocyanine Green 25 mg STK-MED ONCE IJ Last administered on 10/25/24at 15:20; Start 10/25/24 at 14:38; Stop 10/25/24 at 14:38; Status DC Lidocaine HCl 100 mg STK-MED ONCE .ROUTE; Start 10/25/24 at 15:23; Stop 10/25/24 at 15:24; Status DC Propofol 200 mg STK-MED ONCE IV; Start 10/25/24 at 15:24; Stop 10/25/24 at 15:24; Status DC Succinylcholine Chloride 200 mg STK-MED ONCE .ROUTE; Start 10/25/24 at 15:24; Stop 10/25/24 at 15:24; Status DC Midazolam HCl 2 mg STK-MED ONCE .ROUTE; Start 10/25/24 at 15:24; Stop 10/25/24 at 15:24; Status DC Rocuronium [place] 50 mg STK-MED ONCE .ROUTE; Start 10/25/24 at 15:24; Stop 10/25/24 at 15:24; Status DC Fentanyl Citrate 100 mcg STK-MED ONCE .ROUTE; Start 10/25/24 at 15:24; Stop 10/25/24 at 15:24; Status DC Propofol 200 mg STK-MED ONCE IV; Start 10/25/24 at 16:38; Stop 10/25/24 at 16:38; Status DC Acetaminophen 100 ml @ As Directed STK-MED ONCE .ROUTE Last administered on 10/25/24at 17:21; Start 10/25/24 at 17:07; Stop 10/25/24 at 17:07; Status DC Morphine Sulfate 2 mg Q6H6 PRN IVP; Start 10/25/24 at 20:00; Stop 10/26/24 at 08:58; Status DC Tramadol HCl 50 mg Q4H PRN PO; Start 10/26/24 at 09:00; Stop 10/31/24 at 08:59 Tramadol HCl 100 mg Q4H PRN PO Last administered on 10/26/24at 17:06; Start 10/26/24 at 09:00; Stop 10/31/24 at 08:59 Pantoprazole Sodium 40 mg DAILY PO Last administered on 10/27/24at 10:08; Start 10/27/24 at 10:00; Stop 11/26/24 at 09:59 Clindamycin HCl/ Dextrose 50 ml @ 100 mls/hr Q8H IV Last administered on 10/27/24at 11:01; Start 10/27/24 at 10:00; Stop 11/06/24 at 09:59 LAMONT MEJIA Jr. October 27, 2024 16:17
--- NOTE | 2024-10-27 17:02 | HMCIMG ---
Exam Type: CHEST 1VW Clinical Information: shortness of breath, high heart rate Comparison: None Findings: The lungs are clear of infiltrates. The heart is normal in size. The bony and soft tissue structures of the chest are unremarkable. Impression: Clear lungs.
[2024-10-27] MEDS: traMADol HCL 50 MG TABLET PO PRN (18:24)
[2024-10-28] VITALS (10 sets, daily range): BP systolic 115–140; BP diastolic 36–76; PULSE 77–106; RESP 18–20; TEMP 98–98.5; O2SAT 92–94
[2024-10-28 06:16] LABS: HEMATOCRIT 38.6 % (36-48); MEAN CORPUSCULAR HEMOGLOBIN 29.6 pg (27.0-33.0); MEAN CORPUSCULAR HGB CONC 31.6 g/dL (32.0-36.0); MEAN CORPUSCULAR VOLUME 93.7 fL (79-99); RED BLOOD CELL COUNT(AUTO) 4.12 MIL/uL (4.00-5.50); RED CELL DISTRIBUTION WIDTH 13.1 % (11.0-15.5); WHITE BLOOD COUNT (AUTO) 15.7 K/uL (4.8-10.8)
[2024-10-28 06:30] LABS: ALBUMIN 2.4 g/dL (3.5-5.0); BILIRUBIN,DIRECT 0.8 mg/dL (0.0-0.3); BILIRUBIN,TOTAL 1.3 mg/dL (0.2-1.0); CREATININE 0.7 mg/dL (0.5-1.0); POTASSIUM 3.6 mmol/L (3.5-5.1); TOTAL PROTEIN, SERUM 7.2 g/dL (6.0-8.3)
[2024-10-28] MEDS ORDERED: LEVO-70 PO (08:12)
[2024-10-28] MEDS ORDERED: CLIN-141 PO (08:12)
--- NOTE | 2024-10-28 10:50 | PN ---
Subjective Review of Systems PROGRESS NOTE Date of Visit: October 28, 2024 Time of Visit: 10:41 Events since last encounter C/O LEFT THIGH PAIN RADIATING DOWN LEFT LEG, Subjective HAS HAD A BOWEL MOVEMENT AND TOLERATING DIET General: No Fever, No Chills, No Night Sweats, No Fatigue, No Malaise, No Appetite, No Other HEENT: No Head Aches, No Visual Changes, No Eye Pain, No Ear Pain, No Dysphasia, No Sinus Congestion, No Post Nasal Drip, No Sore Throat, No Other Pulmonary: No Dyspnea, No Cough, No Pleuritic Chest Pain, No Other Cardiovascular: No: Chest Pain, Palpitations, Orthopnea, Paroxysmal Noc. Dyspnea, Edema, Lt Headedness, Other Gastrointestinal: No: Nausea, Vomiting, Abdominal Pain, Diarrhea, Constipation, Melena, Hematochezia, Other Genitourinary: No Dysuria, No Frequency, No Incontinence, No Hematuria, No Retention, No Other Musculoskeletal: leg pain (LEFT LEG RADIATING DOWN LEFT LEG); No: other, neck pain, shoulder pain, arm pain, back pain, hand pain, foot pain Skin: No Urticaria, No Rash, No Other Neurological: No: Weakness, Numbness, Incoordination, Change in speech, Confusion, Seizures, Other Objective Vitals and I/O Vital Sign (Last 24 Hours) 10/28/24 10/28/24 07:12 07:33 Temp 98.4 Pulse 95 Resp 20 B/P (MAP) 115/54 Pulse Ox 92 O2 Delivery Nasal Cannula O2 Flow Rate 2.0 FiO2 28 Intake & Output (last 24hrs) 10/27/24 10/27/24 10/28/24 15:00 23:00 07:00 Intake Total 50.0 ml Balance 50.0 ml General: Alert, Oriented X3, Cooperative, No acute distress HEENT: Atraumatic, PERRLA, EOMI Neck: Supple, No JVD, No thyromegaly Lungs: Clear to auscultation, Normal air movement Heart: Regular rate, Regular rhythm, Normal S1 Abdomen: Normal bowel sounds, Soft, No tenderness Extremities: No clubbing, No cyanosis, No edema Skin: No rashes, No breakdown Neuro: Normal speech, Normal tone, Other (LEFT LEG PAIN WITH ELEVATION AND WALKING) Psych/Mental Status: Mental status NL, Mood NL, Thoughts/Content NL Results RADIOLOGY: [] EKG: [] Laboratory Tests Test 10/27/24 11:00 10/27/24 15:50 10/27/24 19:41 10/28/24 05:14 Whole Blood Glucose 144 MG/DL (70-110) H 158 MG/DL (70-110) H 145 MG/DL (70-110) H 136 MG/DL (70-110) H Test 10/28/24 06:07 White Blood Count 15.7 K/uL (4.8-10.8) H Red Blood Count 4.12 MIL/uL (4.00-5.50) Hemoglobin 12.2 g/dL (12.0-16.0) Hematocrit 38.6 % (36-48) Mean Corpuscular Volume 93.7 fL (79-99) Mean Corpuscular Hemoglobin 29.6 pg (27.0-33.0) Mean Corpuscular Hemoglobin Concent 31.6 g/dL (32.0-36.0) L Red Cell Distribution Width 13.1 % (11.0-15.5) Platelet Count 227 K/uL (130-400) Mean Platelet Volume 10.2 fL (7.5-10.5) Nucleated Red Blood Cells 0.0 % (0.0-0.19) Sodium Level 137 mmol/L (136-145) Potassium Level 3.6 mmol/L (3.5-5.1) Chloride Level 100 mmol/L (101-111) L Carbon Dioxide Level 30 mmol/L (21-32) Blood Urea Nitrogen 5 mg/dL (7-18) L Creatinine 0.7 mg/dL (0.5-1.0) Glomerular Filtration Rate Calc 95 mL/min (>90) Random Glucose 139 mg/dL (70-105) H Total Calcium 8.3 mg/dL (8.5-10.1) L Total Bilirubin 1.3 mg/dL (0.2-1.0) H Direct Bilirubin 0.8 mg/dL (0.0-0.3) H Aspartate Amino Transf (AST/SGOT) 49 U/L (10-37) H Alanine Aminotransferase (ALT/SGPT) 169 U/L (12-78) H Alkaline Phosphatase 177 U/L (50-136) H Total Protein 7.2 g/dL (6.0-8.3) Albumin 2.4 g/dL (3.5-5.0) L Medications Current Medications Lactated Ringer's 1,000 ml BOLUS STAT IV Last administered on 10/25/24at 00:47; Start 10/25/24 at 00:22; Stop 10/25/24 at 00:29; Status DC Cyclobenzaprine HCl 10 mg ONCE ONCE PO Last administered on 10/25/24at 01:00; Start 10/25/24 at 01:00; Stop 10/25/24 at 01:01; Status DC Ketorolac Tromethamine 30 mg ONCE ONCE IVP Last administered on 10/25/24at 01:00; Start 10/25/24 at 01:00; Stop 10/25/24 at 01:01; Status DC Lidocaine HCl 10 ml ONCE ONCE PO Last administered on 10/25/24at 01:00; Start 10/25/24 at 01:00; Stop 10/25/24 at 01:01; Status DC Al Hydroxide/Mg Hydroxide 30 ml ONCE ONCE PO Last administered on 10/25/24at 01:00; Start 10/25/24 at 01:00; Stop 10/25/24 at 01:01; Status DC Pantoprazole Sodium 40 mg ONCE ONCE IVP Last administered on 10/25/24at 01:00; Start 10/25/24 at 01:00; Stop 10/25/24 at 01:01; Status DC Ondansetron HCl 4 mg ONCE ONCE IVP Last administered on 10/25/24at 01:17; Start 10/25/24 at 01:30; Stop 10/25/24 at 01:31; Status DC Iohexol 35,000 mg STK-MED ONCE IV; Start 10/25/24 at 01:51; Stop 10/25/24 at 01:52; Status DC Cefazolin Sodium 1 gm ONCE STAT IVP Last administered on 10/25/24at 02:10; Start 10/25/24 at 01:57; Stop 10/25/24 at 02:03; Status DC Fentanyl Citrate 50 mcg ONCE ONCE IVP Last administered on 10/25/24at 02:19; Start 10/25/24 at 02:30; Stop 10/25/24 at 02:31; Status DC Insulin Human Regular 10 unit ONCE ONCE SQ Last administered on 10/25/24at 02:27; Start 10/25/24 at 02:30; Stop 10/25/24 at 02:31; Status DC Fentanyl Citrate 50 mcg ONCE ONCE IVP Last administered on 10/25/24at 02:52; Start 10/25/24 at 03:00; Stop 10/25/24 at 03:01; Status DC Ketorolac Tromethamine 30 mg ONCE ONCE IVP Last administered on 10/25/24at 03:33; Start 10/25/24 at 03:30; Stop 10/25/24 at 03:31; Status DC Hydromorphone HCl 1 mg ONCE ONCE IVP Last administered on 10/25/24at 06:53; Start 10/25/24 at 07:00; Stop 10/25/24 at 07:01; Status DC Sodium Chloride 1,000 ml @ 75 mls/hr [id number] IV Last administered on 10/27/24at 10:21; Start 10/25/24 at 07:00; Stop 10/27/24 at 15:35; Status DC Ceftriaxone Sodium 1 gm Q24H IVPB Last administered on 10/28/24at 08:48; Start 10/25/24 at 09:00; Stop 10/28/24 at 10:38; Status DC Hydromorphone HCl 0.5 mg Q4H PRN IVP Last administered on 10/26/24at 02:35; Start 10/25/24 at 07:00; Stop 10/27/24 at 09:49; Status DC Ondansetron HCl 4 mg Q6H PRN IVP Last administered on 10/27/24at 09:12; Start 10/25/24 at 07:00; Stop 11/24/24 at 06:59 Acetaminophen 650 mg Q6H PRN PO; Start 10/25/24 at 14:00; Stop 11/24/24 at 13:59 Acetaminophen 650 mg Q4H PRN PO; Start 10/25/24 at 14:00; Stop 11/24/24 at 13:59 Al Hydroxide/Mg Hydroxide 30 ml Q6H PRN PO; Start 10/25/24 at 14:00; Stop 11/24/24 at 13:59 Lactulose 20 gm BID PRN PO; Start 10/25/24 at 14:00; Stop 11/24/24 at 13:59 Guaifenesin/ Dextromethorphan 10 ml Q4H PRN PO; Start 10/25/24 at 14:00; Stop 11/24/24 at 13:59 Albuterol Sulfate 2.5 mg [id number] PRN IH Last administered on 10/25/24at 14:34; Start 10/25/24 at 14:00; Stop 11/24/24 at 13:59 Enoxaparin Sodium 40 mg DAILY SQ Last administered on 10/28/24at 08:48; Start 10/26/24 at 09:00; Stop 11/25/24 at 08:59 Hydralazine HCl 10 mg Q6H PRN IV; Start 10/25/24 at 14:00; Stop 10/28/24 at 10:38; Status DC Famotidine 20 mg DAILY IV Last administered on 10/27/24at 09:09; Start 10/26/24 at 09:00; Stop 10/27/24 at 09:49; Status DC Dextrose 50 ml AD PRN IV; Start 10/25/24 at 14:00; Stop 11/24/24 at 13:59 Glucagon 1 mg AD PRN IM; Start 10/25/24 at 14:00; Stop 11/24/24 at 13:59 Insulin Human Regular INSULIN SLIDING SCAL... ACHS SQ Last administered on 10/26/24at 06:22; Start 10/25/24 at 16:30; Stop 11/24/24 at 16:29 Potassium Chloride 100 ml @ 100 mls/hr AD PRN IV; Start 10/25/24 at 14:00; Stop 11/24/24 at 13:59 Potassium Chloride 20 meq AD PRN PO; Start 10/25/24 at 14:00; Stop 11/24/24 at 13:59 Potassium Chloride 20 meq AD PRN PO; Start 10/25/24 at 14:00; Stop 11/24/24 at 13:59 Potassium Chloride 100 ml @ 50 mls/hr AD PRN IV; Start 10/25/24 at 14:00; Stop 10/25/24 at 14:04; Status DC Magnesium Sulfate 50 ml @ 0 mls/hr PROTOCOL PRN IV; Start 10/25/24 at 14:00; Stop 11/24/24 at 13:59 Bupivacaine HCl 2.5 mg STK-MED ONCE IJ Last administered on 10/25/24at 16:21; Start 10/25/24 at 14:36; Stop 10/25/24 at 14:37; Status DC Bupivacaine HCl 2.5 mg STK-MED ONCE IJ Last administered on 10/25/24at 16:21; Start 10/25/24 at 14:37; Stop 10/25/24 at 14:37; Status DC Indocyanine Green 25 mg STK-MED ONCE IJ Last administered on 10/25/24at 15:20; Start 10/25/24 at 14:38; Stop 10/25/24 at 14:38; Status DC Lidocaine HCl 100 mg STK-MED ONCE .ROUTE; Start 10/25/24 at 15:23; Stop 10/25/24 at 15:24; Status DC Propofol 200 mg STK-MED ONCE IV; Start 10/25/24 at 15:24; Stop 10/25/24 at 15:24; Status DC Succinylcholine Chloride 200 mg STK-MED ONCE .ROUTE; Start 10/25/24 at 15:24; Stop 10/25/24 at 15:24; Status DC Midazolam HCl 2 mg STK-MED ONCE .ROUTE; Start 10/25/24 at 15:24; Stop 10/25/24 at 15:24; Status DC Rocuronium [place] 50 mg STK-MED ONCE .ROUTE; Start 10/25/24 at 15:24; Stop 10/25/24 at 15:24; Status DC Fentanyl Citrate 100 mcg STK-MED ONCE .ROUTE; Start 10/25/24 at 15:24; Stop 10/25/24 at 15:24; Status DC Propofol 200 mg STK-MED ONCE IV; Start 10/25/24 at 16:38; Stop 10/25/24 at 16:38; Status DC Acetaminophen 100 ml @ As Directed STK-MED ONCE .ROUTE Last administered on 10/25/24at 17:21; Start 10/25/24 at 17:07; Stop 10/25/24 at 17:07; Status DC Morphine Sulfate 2 mg Q6H6 PRN IVP; Start 10/25/24 at 20:00; Stop 10/26/24 at 08:58; Status DC Tramadol HCl 50 mg Q4H PRN PO Last administered on 10/28/24at 08:57; Start 10/26 at 09:00; Stop 10/31/24 at 08:59 Tramadol HCl 100 mg Q4H PRN PO Last administered on 10/26/24at 17:06; Start 10/26/24 at 09:00; Stop 10/31/24 at 08:59 Pantoprazole Sodium 40 mg DAILY PO Last administered on 10/28/24at 08:48; Start 10/27/24 at 10:00; Stop 11/26/24 at 09:59 Clindamycin HCl/ Dextrose 50 ml @ 100 mls/hr Q8H IV Last administered on 10/28/24at 10:32; Start 10/27/24 at 10:00; Stop 10/28/24 at 10:38; Status DC Methylprednisolone Sodium Succinate 125 mg Q8H IVP; Start 10/28/24 at 11:00; Stop 11/27/24 at 10:59; Status UNV Clindamycin HCl 300 mg BID PO; Start 10/28/24 at 21:00; Stop 11/07/24 at 20:59; Status UNV Levofloxacin 500 mg DAILY PO; Start 10/28/24 at 11:00; Stop 11/07/24 at 10:59; Status UNV Assessment/Plan RADIOLOGY ABD PELWWO - CT ABDOMEN/PELVIS W/WO CONTRAS Findings: No evidence of nephro or ureterolithiasis is found. No hydronephrosis or ureteral dilatation is seen. The lung bases are clear. The stomach is unremarkable. It shows no wall thickening. No gross ulceration is seen. It is not overly distended. There are no surrounding inflammatory changes. No wall lesions are identified to suggest cancer. The spleen is unremarkable. It is not enlarged. The pancreas shows normal anatomy. It is not fatty replaced. It shows no lesions. The pancreatic duct is not dilated. There is evidence of cholelithiasis. The gallbladder is hydropic. No evidence of acute or chronic inflammation is seen. The adrenal glands are unremarkable. There is no enlargement. No lesions are noted. The liver is unremarkable. It shows no focal masses. The appendix is unremarkable. It shows no evidence of inflammation. No appendicolith is seen.The small bowel is unremarkable. There is no evidence of dilatation to suggest obstruction. No evidence of adynamic ileus is seen. There is no small bowel wall thickening to suggest enteritis. There is diverticulosis. There is no evidence of acute inflammation to suggest diverticulitis. The colon is otherwise unremarkable. The urinary bladder is unremarkable. There is no wall thickening to suggest tumor or inflammation. There are no intraluminal calculi. There are no diverticula. There is no evidence of chronic bladder outlet obstruction. There is no evidence of urinary bladder distention to suggest urinary retention. The other pelvic structures are unremarkable. The bony and vascular structures are unremarkable for the patient's age. IMPRESSION: Hydropic gallbladder with cholelithiasis. Diverticulosis of the colon. No acute inflammation. This study was performed using dose reduction techniques to include automated exposure control and/or adjustment of the mA and/or kV according to patient size. ABDRUQLTD - US ABDOMINAL RUQ\LTD Findings: The liver shows fatty infiltration and is enlarged, measuring 19 cm and is otherwise unremarkable. Doppler evaluation shows patent portal and hepatic veins. The gallbladder shows cholelithiasis. There is a positive Nunez's sign and this may represent acute cholecystitis. The gallbladder is hydropic. The gallbladder wall measures 2 mm. The common bile duct not visualized due to abundant overlying bowel gas. The right kidney measures 10.9 x 5.4 cm- it shows no hydronephrosis or calculi, masses or other abnormalities. The pancreas is unremarkable. The aorta and inferior vena cava show no significant abnormalities. Small right pleural effusion. IMPRESSION: FATTY LIVER INFILTRATION AND HEPATOMEGALY. Cholelithiasis and hydropic gallbladder and possible acute cholecystitis. Right pleural effusion. OTHERWISE NORMAL RIGHT UPPER QUADRANT ABDOMINAL ULTRASOUND. 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- 01/2022 HH AND RENAL DISEASE WITH CKD 2 W/O CHF STRESS TEST NEG 03/2022 DJD GEN MULTIPLE SITES SHE PRESENTED WITH ACUTE BILIARY COLI AND FOUND TO HAVE CHOLELITHIASIS WITH SUSPECTED ACUTE CHOLECYSTITIS S/P ROBOTIC CHOLECYSTECTOMY DECONDITIONING WITH TACHYCARDIA LEFT LEG RADICULOPATHY MILD COPD EX PLAN: TOLERATING DIET AND HAD A GOOD BM WEANING ANALGESICS TO PO TOLERATED ACUTE LEFT LEG SCIATICA LIMITING AMBULATION - TRIAL OF SOLU-MEDROL AND CONT P.T TO INCREASE AMBULATION WITH ANALGESICS CHANGING TO PO ANTIBIOTICS W LEVAQUIN AND CLINDAMYCIN SCHEDULE NEBS AND WEANING O2 TOLERATED DID NOT DESAT WITH 6 MIN WALK CXR WAS CLEAR - CONT TO ENCOURAGE IS AT BEDSIDE SUPPLEMENT ELECTROLYTES GLUCOSE AND BLOOD PRESSURES UNDER CONTROL TACHYCARDIA W AMBULATION AND WILL INCREASE SLOWLY LOVENOX FOR DVT PROPHYLAXIS PO PANTOPRAZOLE FOR STRESS ULCER PROPHYLAXIS INCREASE MOBILITY TOLERATED ANSWERED ALL QUESTIONS FOR PATIENT AND AT BEDSIDE MANI RODNEY MD October 28, 2024 10:50
[2024-10-28] MEDS: Solu-medROL 125MG VIAL IVP SCH (11:05)
[2024-10-28] MEDS: levoFLOXacin 500 MG TABLET PO SCH (11:05)
[2024-10-28] MEDS: IpraTROPium 0.5 MG/2.5 ML INH IH SCH (11:14)
--- NOTE | 2024-10-28 14:20 | PN ---
Postop day 3. After laparoscopic cholecystectomy. Patient is doing much better from the GI point of view. Tolerating diet. No further abdominal pain. She has some episodes of sharp redness but that has resolved. Also little bit of the tachycardic. White count is 15.3 bilirubin 1.3 he is continues to decrease. From my point of view patient could be discharged in the continue with diet. We will see her in a week or two in our office. Vitals/Labs Vital Signs Date Time Temp Pulse Resp B/P (MAP) Pulse Ox O2 Delivery O2 Flow Rate FiO2 10/28/24 11:35 98.4 91 20 116/36 95 Nasal Cannula 2.0 10/28/24 11:26 21 Laboratory Tests 10/28/24 06:07 CANDY HALL MD October 28, 2024 14:20
[2024-10-28] MEDS ORDERED: ACET-66 PO (17:47)
--- NOTE | 2024-10-28 17:48 | DS ---
DISCHARGE SUMMARY Date of Visit: October 28, 2024 Time of Visit: 17:48 ADMISSION DATE: October 25, 2024 at 06:40 DISCHARGE DATE: October 28, 2024 ATTENDED PHYSICIAN: Mani Fagan MD DISCHARGE DIAGNOSIS: ACUTE BILIARY COLI AND FOUND TO HAVE CHOLELITHIASIS WITH ACUTE CHOLECYSTITIS S/P ROBOTIC CHOLECYSTECTOMY - 10/25/2024 DR HALL DECONDITIONING WITH TACHYCARDIA LEFT LEG RADICULOPATHY MILD COPD EX MORBID BMI 48 ALLERGIC RHINITIS ASTHMA CHRONIC OBS / EX- SMOKER MIXED LIPIDS DEPRESSION MAJOR SINGLE EPISODE, MODERATE DM II W PERIPHERAL POLYNEUROPATHY OSTEOPOROSIS HISTORY OF RIGHT NEPHROLITHIASIS NON OBSTRUCTING 6 MM CHF EF 65% LVH 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 No hydronephrosis or ureteral dilatation is seen. The lung bases are clear. The stomach is unremarkable. It shows no wall thickening. No gross ulceration is seen. It is not overly distended. There are no surrounding inflammatory changes. No wall lesions are identified to suggest cancer. The spleen is unremarkable. It is not enlarged. The pancreas shows normal anatomy. It is not fatty replaced. It shows no lesions. The pancreatic duct is not dilated. There is evidence of cholelithiasis. The gallbladder is hydropic. No evidence of acute or chronic inflammation is seen. The adrenal glands are unremarkable. There is no enlargement. No lesions are noted. The liver is unremarkable. It shows no focal masses. The appendix is unremarkable. It shows no evidence of inflammation. No appendicolith is seen.The small bowel is unremarkable. There is no evidence of dilatation to suggest obstruction. No evidence of adynamic ileus is seen. There is no small bowel wall thickening to suggest enteritis. There is diverticulosis. There is no evidence of acute inflammation to suggest diverticulitis. The colon is otherwise unremarkable. The urinary bladder is unremarkable. There is no wall thickening to suggest tumor or inflammation. There are no intraluminal calculi. There are no diverticula. There is no evidence of chronic bladder outlet obstruction. There is no evidence of urinary bladder distention to suggest urinary retention. The other pelvic structures are unremarkable. The bony and vascular structures are unremarkable for the patient's age. IMPRESSION: Hydropic gallbladder with cholelithiasis. Diverticulosis of the colon. No acute inflammation. This study was performed using dose reduction techniques to include automated exposure control and/or adjustment of the mA and/or kV according to patient size. ABDRUQLTD - US ABDOMINAL RUQ\LTD Findings: The liver shows fatty infiltration and is enlarged, measuring 19 cm and is otherwise unremarkable. Doppler evaluation shows patent portal and hepatic veins. The gallbladder shows cholelithiasis. There is a positive Nunez's sign and this may represent acute cholecystitis. The gallbladder is hydropic. The gallbladder wall measures 2 mm. The common bile duct not visualized due to abundant overlying bowel gas. The right kidney measures 10.9 x 5.4 cm- it shows no hydronephrosis or calculi, masses or other abnormalities. The pancreas is unremarkable. The aorta and inferior vena cava show no significant abnormalities. Small right pleural effusion. IMPRESSION: FATTY LIVER INFILTRATION AND HEPATOMEGALY. Cholelithiasis and hydropic gallbladder and possible acute cholecystitis. Right pleural effusion. OTHERWISE NORMAL RIGHT UPPER QUADRANT ABDOMINAL ULTRASOUND. PROCEDURES: ROBOTIC CHOLECYSTECTOMY DATE OF PROCEDURE: 10/25/24 SURGEON: CANDY HALL MD PRE AND OPERATIVE DIAGNOSIS: Acute cholecystitis COMPLICATIONS : NONE HOSPITAL COURSE: THIS IS A 68 YR OLD WOMAN WITH THE ABOVE PMH WHO PRESENTED WITH ACUTE BILIARY COLI AND FOUND TO HAVE CHOLELITHIASIS WITH ACUTE CHOLECYSTITIS. SHE WAS TREATED WITH BOWEL REST, IVF, IVF HYDRATION, IV ANTIBIOTICS, ANALGESICS AND ANTI EMETICS. SHE UNDERWENT A ROBOTIC CHOLECYSTECTOMY BY DR HALL ON 10/25/2024. POST OP SHE WAS SLOW TO RECOVER DUE TO DECONDITIONING WITH TACHYCARDIA, LEFT LEG RADICULOPATHY AND A MILD COPD EXACERBATION. SHE WAS TREATED WITH ANALGESICS IV STEROIDS AND PHYSICAL THERAPY WITH SCHEDULED NEBULIZER TREATMENTS. ONCE AMBULATING BETTER AND PAIN UNDER CONTROL WITH STABLE RESPIRATORY STATUS SHE WAS DISCHARGED IN STABLE CONDITION. DIET: ADA HEART HEALTHY ACTIVITY: PROGRESSIVE AMBULATION CONDITION: STABLE EQUIPMENT: NONE FOLLOW UP APPOINTMENT(S): DR FAGAN IN 2-5 DAYS DISPOSITION: HOME CODE STATUS: FULL MEDICATION RECONCILIATION : ADDED CLINDAMYCIN 300 MG PO BID X 7 DAYS ADDED LEVAQUIN 500 MG DAILY X 7 DAYS TYLENOL FOR PAIN PRN CONTINUE HER SCHEDULED BRONCHODILATORS CONTINUE TO HOLD HER GLP1 UNTIL FURTHER NOTICE ADJUST HER INSULIN NEEDED AT HOME ^ Home Meds Active Scripts Acetaminophen (Tylenol) 500 Mg Tab, 2 TAB PO TID PRN for pain or fever for 15 Days, #60 TAB 0 Refills take over the counter Prov:MANI FAGAN MD 10/28/24 Clindamycin HCl (Clindamycin HCl) 300 Mg Capsule, 1 CAP PO BID for 7 Days, #14 CAP 0 Refills Prov:MANI FAGAN MD 10/28/24 Levofloxacin (Levofloxacin) 500 Mg Tablet, 1 TAB PO DAILY for 7 Days, #7 TAB 0 Refills Prov:MANI FAGAN MD 10/28/24 Simvastatin (Simvastatin) 40 Mg Tablet, 1 TAB PO HS for 30 Days, #30 TAB 0 Refills Prov:MANI FAGAN MD 10/25/24 Pantoprazole Sodium (Pantoprazole Sodium) 40 Mg Tablet.dr, 1 TAB PO DAILY for 30 Days, #30 TAB 0 Refills Prov:MANI FAGAN MD 10/25/24 [place]-3 Fatty Acids/Fish Oil ([place] 3 1,000 mg Softgel) 300 Mg-1,000 Mg Capsule, 1 CAP PO DAILY for 30 Days, #90 CAP 0 Refills WITH MEALS Prov:MANI FAGAN MD 10/25/24 Mirtazapine (Mirtazapine) 30 Mg Tab.rapdis, 30 MG PO HS, #90 10 Prov:MANI FAGAN MD 10/25/24 Lisinopril (Lisinopril) 2.5 Mg Tablet, 2.5 MG PO DAILY, #90 TAB Prov:MANI FAGAN MD 10/25/24 Insulin Glargine,Hum.rec.anlog (Basaglar Kwikpen U-100) 100 Unit/Ml (3 Ml) Insuln.pen, 60 UNIT SQ BID, #30 SYRINGE Prov:MANI FAGAN MD 10/25/24 Albuterol Sulfate (Albuterol Sulfate) 2.5 Mg/3 Ml Inh, 2.5 MG IH [id number] PRN for SHORTNESS OF BREATH, #1 INH 3 Refills Prov:MANI FAGAN MD 08/23/14 Reported Medications Fluticasone/Salmeterol (ADVAIR 250-50 DISKUS) 14 Inh/Disk Inh, 0 IH DAILY, INHALER 08/18/14 Discontinued Reported Medications [Albuterol Inhaler] No Conflict Check, AD 08/18/14 Discontinued Scripts Semaglutide (Ozempic) 1 Mg/0.75 Ml (4 Mg/3 Ml) Pen.injctr, 1 MG SQ QWEEK for 30 Days, #3 ML 0 Refills Prov:MANI FAGAN MD 10/25/24 Sulfamethoxazole/Trimethoprim (Bactrim Ds Tablet) 1 Each Tablet, 2 TAB PO BID, #40 TAB Prov:RAJI DAVILA MD 08/27/14 MANI FAGAN MD October 28, 2024 17:48
--- NOTE | 2024-10-28 19:31 | NUR ---
DISCHARGE DC INSTRUCTIONS GIVEN TO PT AND SPOUSE AT BEDSIDE. IV REMOVED CATHETER INTACT. DENIES PAIN OR DISCOMFORT. PT WHEELED DOWN IN WHEELCHAIR BY PCT. NO FURTHER COMMENTS OR CONCERNS.
[2024-10-28] MEDS ORDERED: CLINDAMYCIN 150 MG CAP PO SCH (21:00)
--- NOTE | 2024-10-31 13:59 | NUR ---
Transitional Phone Call Patient called back. Patient states "feeling a little pain but doing better. I'm doing okay." has gotten her prescription medication; no questions or concerns. Patient state still using her abdominal binder. went to her follow up appointment with PCP - Dr. Fagan yesterday 10/30/2024 and has the follow up appointment surgeon - Dr. Navarro in two weeks on or abut 11/14/2024. No questions or concerns at this time.
== END 2024-10-28 19:15 | disposition home or self-care (01) | DRG 418 ==
LOC: EDH 00:14 → EDHIP 06:40 → 3DH 17:55
PROVIDERS: ADMIT Internal Medicine; ATTEND Internal Medicine
PROC: 8E0W4CZ Robotic Assisted Procedure of Trunk Region, Percutaneous Endoscopic Approach (ICD-10-PCS; 2024-10-25)
PROC: 0FT44ZZ Resection of Gallbladder, Percutaneous Endoscopic Approach (ICD-10-PCS; principal; 2024-10-25 15:23)
DX: K80.00 Calculus of gallbladder with acute cholecystitis without obstruction (principal); F32.1 Major depressive disorder, single episode, moderate; I13.0 Hypertensive heart and chronic kidney disease with heart failure and stage 1 through stage 4 chronic kidney disease, or unspecified chronic kidney disease; J44.1 Chronic obstructive pulmonary disease with (acute) exacerbation; K82.1 Hydrops of gallbladder; Z68.42 Body mass index [BMI] 45.0-49.9, adult; E11.22 Type 2 diabetes mellitus with diabetic chronic kidney disease; E11.42 Type 2 diabetes mellitus with diabetic polyneuropathy; I50.9 Heart failure, unspecified; J45.909 Unspecified asthma, uncomplicated; M81.0 Age-related osteoporosis without current pathological fracture; E66.01 Morbid (severe) obesity due to excess calories; E78.00 Pure hypercholesterolemia, unspecified; F41.9 Anxiety disorder, unspecified; K57.30 Diverticulosis of large intestine without perforation or abscess without bleeding; K76.0 Fatty (change of) liver, not elsewhere classified; N18.2 Chronic kidney disease, stage 2 (mild); Z79.899 Other long term (current) drug therapy; Z87.442 Personal history of urinary calculi; Z87.891 Personal history of nicotine dependence; Z83.3 Family history of diabetes mellitus; Z83.438 Family history of other disorder of lipoprotein metabolism and other lipidemia
CPT/HCPCS: 36415; 71045; 74178; 76705; 80048; 80076; 81001; 82948; 83690; 83880; 84484; 85025; 85027; 87086; 87186; 93005; 94640; 94664; 96374; 96375; 99285; A4450; G0378; J0330; J0690; J0696; J1171; J1650; J1815; J1885; J2003; J2250; J2405; J2470; J2704; J2919; J3010; J3490; J7030; J7120; Q9967; A4222; A4223; A4510; A4600; A4649; A4930; C1769; J0665